=== PATIENT | female | born 1955 | race Caucasian/White ===

== ENCOUNTER 2024-08-01 22:48 | Inpatient (IN) | payer MEDICARE, OTHER, SELFPAY ==
[2024-08-01 19:49] VITALS: BP 165/111; BMI 27.7
[2024-08-01 19:51] VITALS: BP 165/111
[2024-08-01] MEDS: DILAUDID 0.5 MG IV (20:08)
[2024-08-01] MEDS: NSS 500 IV (20:23)
[2024-08-01] MEDS: DECADRON 4 MG IV (20:24)
[2024-08-01 20:27] LABS: % Basophils 0.4 % (0-2); % Eosinophils 0.1 % (0-6); % Immature Granulocytes 1.2 % (0-0.5); % Lymphocytes 5.3 % (20.5-51.1); % Monocytes 4.3 % (1.7-9.3); % Neutrophils 88.7 % (42.2-75.2); Absolute Basophils 0.1 10^3/uL (0-0.2); Absolute Immature Granulocytes 0.3 10^3/uL (0-0.05); Absolute Lymphocytes 1.2 10^3/uL (1.2-3.4); Absolute Neutrophils 19.7 10^3/uL (1.4-6.5); Hematocrit 30.6 % (37.0-47.0); Mean Corp Hgb Conc. 35.9 g/dL (33.0-37.0); Mean Corpuscular Hgb 31.3 pg (27.0-31.0); Mean Corpuscular Volume 87.2 fL (81.0-99.0); Mean Platelet Volume 8.3 fL (7.4-10.4); Nucleated Red Blood Cells % 0 %; Platelet Count 410 10^3/uL (130-400); Red Blood Cell Count 3.51 10^6/uL (4.20-5.40); Red Cell Dist. Width 13.3 % (11.5-14.5); White Blood Cell Count 22.2 10^3/uL (4.8-10.8)
[2024-08-01 20:42] LABS: Erythrocyte Sed Rate 42 mm/hour (0-20)
[2024-08-01 20:46] LABS: ALT (SGPT) 23 U/L (0-35); AST (SGOT) 31 U/L (14-36); Albumin 4.2 g/dl (3.5-5.0); Alkaline Phosphatase 85 U/L (38-126); Blood Urea Nitrogen 13 mg/dl (7-17); Calcium 8.7 mg/dl (8.4-10.2); Carbon Dioxide 13 mmol/L (22-30); Chloride 89 mmol/L (98-107); Creatine Phosphokinase 165 U/L (30-135); Estimated Creatinine Clearance 76 ml/min; Glucose 144 mg/dl (70-99); Potassium 4.3 mmol/L (3.5-5.1); Sodium 118 mmol/L (135-145); Total Bilirubin 0.8 mg/dl (0.2-1.3); Total Protein 6.8 g/dl (6.3-8.2); eGFR > 60.00
--- NOTE | 2024-08-01 20:55 | ED.GENMED ---
History of Present Illness
General
Chief Complaint: Extremity Pain (non-traumatic)
Source: patient and family
Time Seen by Provider: 08/01/24 19:50
History of Present Illness
History of Present Illness:
69-year-old female complaining of severe bilateral hand pain. Has been a progressive issue over 3 to 4 days but much worse today. Has also been an issue for the last few years. Underlying diagnosis for this has not been clear although felt to be
an arthralgia from her cancer medications. She changed medications 4 days ago. She has been drinking significant water the last 24 to 48 hours.
Past History
Past History
ED Past Medical History: Cancer, HTN, Hypercholesterolemia and Other (Thyroid disease)
ED Past Surgical History: Gynecological (Right mastectomy)
Social History
Tobacco: Non-smoker
Personal:
Living: with family
Review of Systems
Review of Systems
All Other Systems: Not applicable
Constitutional: Denies fever
Respiratory: Reports no symptoms
Cardiac: Reports no symptoms
Phy Exam
Physical Exam
Physical Exam:
GENERAL: Alert and oriented. Mildly pale. Moaning in pain and very uncomfortable. However fully awake alert and answering questions
EYE: Orbits normal.
NECK: Supple
ENT: Pharynx without erythema
CARDIAC: Mildly tachycardic and regular no murmur
LUNGS: Clear breath sounds,normal
ABDOMEN: Soft, without focal tenderness or distention
NEUROLOGICAL: Alert and oriented , grossly non-focal
SKIN: Warm and dry, no rash or lesion, no discoloration, skin intact.
MUSCULOSKELETAL: No edema,no deformity.Good color
PSYCH: Normal and appropriate interaction.
Course
Orders/Labs/Results
Orders:
Orders
08/01/24 20:07
HYDROmorphone [Dilaudid] 0.5 mg .ROUTE .[facility]
HYDROmorphone [Dilaudid] 0.5 mg IV NOW STA
08/01/24 20:10
Electrocardiogram (*1) Stat
Reason for Study: Other
Other Reason for Exam: chest pain
Cardiac Monitoring- Treatment ONCE
EKG- Treatment ONCE
IV Insert/Care/Rem.- Treatment PRN
0.9% Sodium Chloride 500 ml [Nss] 500 ml IV BOLUS
Pulse Ox/cont/shift [RESP] Stat
Quantity: 1
08/01/24 20:11
US Periph Venous UPPER Ext Davidson Urgent
Comment:
Reason For Exam: swelling pain. breat ca hx
08/01/24 20:13
Dexamethasone Sod Phosphate [Decadron] 4 mg IV NOW STA
08/01/24 20:14
CPK [Creatine Phosphokinase] Urgent
CRP [C-Reactive Protein] Urgent
Complete Blood Count/With Diff Urgent
Comprehensive Metabolic Panel Urgent
ESR [Erythrocyte Sed Rate] Urgent
NT-proBNP Urgent
Comment: ADD ON
Serum Osmolality Urgent
Comment: ADD ON
TSH Reflex To Free T4 Urgent
08/01/24 21:51
CXR Port [CR Chest Portable - 1 View] Urgent
Comment: Bilateral hand swelling
Reason For Exam: Bilateral hand swelling
Reason Study Needs to be Portable: Patient Unstable
08/01/24 22:00
3% Sodium Chloride 250 ml [Sodium Chloride 3%] 250 ml IV ONCE
08/01/24 22:06
Add On- LAB Urgent
Tests Added?: serum osmo, BNP
Urine Osmolality Random [Osmolality, Random Urine] Urgent
Urine Sodium Urgent
08/01/24 22:25
Admit/Transfer Patient As Directed
Co-Sign Provider:
Level of Care: Inpatient admission
Assign to:: Telemetry
Physician / Group: Lavern
Diagnosis: Hyponatremia
Reason for Telemetry: Arrhythmia
Date to Stop Telemetry: 08/04/24
Time to Stop Telemetry: 11:00
Reason for Hospitalization: 3% Sodium
Expected length of stay greater than two midnights?: Yes
ELOS- Estimated Length of Stay in days: 3
I certify the patient meets the requirements for IP care: Yes
PRN Pain Medication Management As Directed
May give lesser potent ordered pain med per pt: Yes
preference::
Protocol:: Medication orders for pain may be administered in a
manner that supports deferring to patient preference
when the pt is:
- Requesting an ordered lesser potent pain medication.
Least to most potent pain medications are defined
as: acetaminophen < NSAID < tramadol < opioids
(morphine, oxycodone, hydromorphone).
- Requesting a lesser dose of the same medication IF
ORDERED.
- Requesting a less intrusive route of administration
if both routes are prescribed by the provider (PO <
IV).
08/01/24 22:26
Code Status As Directed
Resuscitation Status: Full Code
08/01/24 22:31
Add On- LAB Routine
Tests Added?: TSH w/Reflex
08/02/24 02:00
BMP [Basic Metabolic Panel] Routine
08/02/24 06:00
BMP [Basic Metabolic Panel] IN AM
08/04/24 11:00
DC Protocol for Telemetry ONCE
Abnormal Lab Results
08/01/24
20:14
WBC 22.2 H 10^3/uL
(4.8-10.8)
RBC 3.51 L 10^6/uL
(4.20-5.40)
Hgb 11.0 L g/dL
(12.0-16.0)
Hct 30.6 L %
(37.0-47.0)
MCH 31.3 H pg
(27.0-31.0)
Plt Count 410 H 10^3/uL
(130-400)
Abs Immat Gran (auto) 0.3 H 10^3/uL
(0-0.05)
Absolute Neuts (auto) 19.7 H 10^3/uL
(1.4-6.5)
Absolute Monos (auto) 1.0 H 10^3/uL
(0.1-0.6)
Immature Gran % 1.2 H %
(0-0.5)
Neutrophils % 88.7 H %
(42.2-75.2)
Lymphocytes % 5.3 L %
(20.5-51.1)
ESR 42 H mm/hour
(0-20)
Sodium 118 L* mmol/L
(135-145)
Chloride 89 L mmol/L
(98-107)
Carbon Dioxide 13 L* mmol/L
(22-30)
Glucose 144 H mg/dl
(70-99)
Creatine Kinase 165 H U/L
(30-135)
C-Reactive Protein 32.00 H mg/L
(0.0-10.00)
08/01/24 20:14
08/01/24 20:14
Vital Signs
Initial and Last Documented VS:
Initial Vital Signs
Temp Pulse Resp BP Pulse Ox
98.5 F 111 30 165/111 100
08/01/24 19:49 08/01/24 19:49 08/01/24 19:49 08/01/24 19:49 08/01/24 19:49
Last Documented Vital Signs
Temp Pulse Resp BP Pulse Ox
98.5 F 106 14 178/84 91
08/01/24 19:49 08/01/24 21:30 08/01/24 21:30 08/01/24 21:00 08/01/24 21:30
MDM/Problems Addressed
Differential Diagnosis Includes:
Bilateral hand and wrist swelling. Appears isolated to the hand and wrist. Doubt vascular issue. Good distal pulses and color. Ultrasounds unremarkable. Low suspicion for DVT. Also doubt infectious issue. Clinically neither hand looks
infected. However she does have a significant leukocytosis. May be reactive may be secondary to already starting steroids. Inflammatory markers mildly elevated. This has been an ongoing issue however worse. Secondarily and more importantly at
this time she has a sodium of 118. Previous sodiums run about 130. Discussed with nephrology. She has had significant fluid intake recently. We will restrict fluids slowly start hypertonic saline. Discussed with Dr. Elizabeth at [facility]. They will
accept her as an admission but she will stay here until a bed is available.
*Radiology
Radiology exam reviewed: preliminary read by ED provider (Negative chest x-ray) and radiology read reviewed (Negative ultrasound)
*Pulse Oximetry
Patient hypoxic: no
*EKG
Interpreted by ED Provider?: Yes
Interpretation: abnormal
Comparison EKG: no comparison EKG present
Heart Rate: 104
Rate: tachycardiac
Rhythm: sinus
[place]: normal axis
Interval: normal interval
QRS Pattern: normal QRS
Ischemia: no ischemia
*[employer] Interpretation
Rate: tachycardiac
Interpretation: abnormal
Heart Rate: 102
Rhythm: sinus
*Critical Care Note
Total Time (30-74mins, 75-104mins- exclusive of procedures): 45
Update Note
Update Note:
2054... Patient sodium is 118. Previous sodiums have been 125-131. Last 1 was 131. Discussed with nephrology. Slow careful hypertonic saline at 20 cc/h. Fluid restrict. With patient's complicated history it makes most sense to have her at
[facility]. Patient and family agree. Will contact them. We are awaiting a callback from the nephrology group.
ED Attending Note
-
Portions of this chart may have been created with voice recognition software.� Occasional wrong word or��sound alike� substitutions may have occurred due to the inherent limitations of voice recognition software.
Discharge Plan
Departure
Patient Disposition: Admit
Date of Disposition: 08/01/24
Time of Disposition: 21:51
Presentation/result/management discussed w/ accepting MD/DO: Nephrology
Discharge Problem:
Severe hyponatremia, Severe bilateral hand arthralgias, History of breast CA
Prescriptions:
No Action
losartan 50 mg Tablet
50 mg PO DAILY
Theragen Tablet
1 tab PO DAILY
tramadol 50 mg Tablet
50 mg PO Q6HPRN PRN (Reason: moderate pain)
acetaminophen [Tylenol Extra Strength] 500 mg Tablet
1,000 mg PO Q6HPRN PRN (Reason: mild pain)
levothyroxine 50 mcg Tablet
50 mcg PO DAILY
ibuprofen 200 mg Tablet
600 mg PO Q6HPRN PRN (Reason: mild pain)
vitamin B complex Tablet
1 tab PO DAILY
methylprednisolone 4 mg Tablets,Dose Pack
0 mg PO PER PKG DIR
ezetimibe 10 mg Tablet
10 mg PO DAILY
calcium carbonate-vitamin D3 [Calcium 500 + D] 500 mg-10 mcg (400 unit) Tablet
1 tab PO DAILY
inulin-sorbitol 2 gram Tablet,Chewable
1 tab PO DAILY
magnesium oxide 400 mg magnesium Tablet
400 mg PO HS
Referrals:
Horacio Steele NP [Family Provider] -
Interventions
Interventions:
*Risk Screen - Suicide Last Done: 08/01/24 19:49
*General Assessment Last Done: 08/01/24 19:49
*Neglect/Abuse Screening Last Done: 08/01/24 19:49
*ED- Fall Risk Assessment Last Done: 08/01/24 19:49
*ED COVID-19 Vaccine History Last Done: 08/01/24 19:49
ED-Skin Assessment Last Done: 08/01/24 19:49
ED-Peripheral Vascular Assessment Last Done: 08/01/24 19:49
ED-Musculoskeletal Assessment Last Done: 08/01/24 19:49
Discharge Date and Time
Print Language: MOHAWK
[2024-08-01 21:00] VITALS: BP 178/84
[2024-08-01] MEDS: SODIUM CHLORIDE 3% 250 IV (21:43)
[2024-08-01 22:00] VITALS: BP 169/88
--- NOTE | 2024-08-01 22:30 | HPS.HSE ---
Family Physician
-
Family Physician: Horacio Steele NP
Chief Complaint
-
Bilateral Hand and Feet Swelling / Pain
History of Present Illness
Patient is a 69 y/o female past medical history of breast cancer, hypertension, hyperlipidemia, and hypothyroidism who presents with worsening bilateral hand pain. Patient has been experiencing bilateral hand pain and swelling for at least year.
Family reports she has undergone extensive work-up at [facility] without a definitive diagnosis. It was felt the symptoms may be related to one of her oncologic medications so decision was made to change her regimen, Following the change in medications
symptoms have actually worsened instead of improved. Due to severity of the symptoms her family brought her to the emergency department for evaluation. Work-up revealed a sodium of 118 and patient reports she has been drinking a large amount of
water, close to 100 ounces per day.
Medical History
Past Medical History
Past Medical History: Reports Other
Additional Past Medical History:
Essential Hypertension
Hyperlipidemia
Hypothyroidism
Chronic Hyponatremia
Breast Cancer
B-Cell Lymphoma
Past Surgical History: Reports Other
Additional Past Surgical History:
Allergies
Allergy/AdvReac Type Severity Reaction Status Date / Time
No Known Allergies Allergy Unverified 08/01/24 19:49
Home Medications
acetaminophen 500 mg tablet (Tylenol Extra Strength) 1,000 mg PO Q6HPRN PRN mild pain 08/01/24
calcium 500 mg (as carbonate)-vitamin D3 10 mcg (400 unit) tablet (Calcium 500 + D) 1 tab PO DAILY 08/01/24
ezetimibe 10 mg tablet 10 mg PO DAILY 08/01/24
ibuprofen 200 mg tablet 600 mg PO Q6HPRN PRN mild pain 08/01/24
inulin-sorbitol 2 gram chewable tablet 1 tab PO DAILY 08/01/24
levothyroxine 50 mcg tablet 50 mcg PO DAILY 08/01/24
losartan 50 mg tablet 50 mg PO DAILY 08/01/24
magnesium oxide 400 mg PO HS 08/01/24
methylprednisolone 4 mg tablets in a dose pack 0 mg PO PER PKG DIR 08/01/24
therapeutic multivitamin 1 tab PO DAILY 08/01/24
tramadol 50 mg tablet 50 mg PO Q6HPRN PRN moderate pain 08/01/24
vitamin B complex 1 tab PO DAILY 08/01/24
Social History
Tobacco: Non-smoker
Family History
Family History: Not pertinent
Allergies / Home Medications
Allergies reflects when Allergies were last updated in [employer].
Home Medications with original date entered in [employer]
Allergy/Medication List:
Allergies
Allergy/AdvReac Type Severity Reaction Status Date / Time
No Known Allergies Allergy Unverified 08/01/24 19:49
Home Medications
acetaminophen 500 mg tablet (Tylenol Extra Strength) 1,000 mg PO Q6HPRN PRN mild pain 08/01/24
calcium 500 mg (as carbonate)-vitamin D3 10 mcg (400 unit) tablet (Calcium 500 + D) 1 tab PO DAILY 08/01/24
ezetimibe 10 mg tablet 10 mg PO DAILY 08/01/24
ibuprofen 200 mg tablet 600 mg PO Q6HPRN PRN mild pain 08/01/24
inulin-sorbitol 2 gram chewable tablet 1 tab PO DAILY 08/01/24
levothyroxine 50 mcg tablet 50 mcg PO DAILY 08/01/24
losartan 50 mg tablet 50 mg PO DAILY 08/01/24
magnesium oxide 400 mg PO HS 08/01/24
methylprednisolone 4 mg tablets in a dose pack 0 mg PO PER PKG DIR 08/01/24
therapeutic multivitamin 1 tab PO DAILY 08/01/24
tramadol 50 mg tablet 50 mg PO Q6HPRN PRN moderate pain 08/01/24
vitamin B complex 1 tab PO DAILY 08/01/24
Review of Systems
-
A 12 point ROS was completed and negative except as noted: Yes
Respiratory: Denies Cough or Trouble Breathing
Cardiac: Denies Chest Pain or Palpitations
Abdomen/GI: Denies Abdominal Pain, Vomiting or Diarrhea
Physical Exam
Vital Signs
Vital Signs
Temp Pulse Resp BP Pulse Ox
98.5 F 106 14 178/84 91
08/01/24 19:49 08/01/24 21:30 08/01/24 21:30 08/01/24 21:00 08/01/24 21:30
Physical Exam
General: Well Developed, Well Nourished and Other (Appears slightly pale)
HEENT: Anicteric and Moist mucous membranes
Respiratory: Clear and Non Labored Respirations
Cardiac: S1/S2, Regular Rhythm and Tachycardia (Slightly)
GI: Soft and Non Tender
Musculoskeletal: No Clubbing and No Cyanosis
Skin: Warm, Dry and Other (Notable swelling involing bilateral finger and wrist joints, left greater than right; Mild erythema right 2nd MCP joint and left wrist)
Neuro: Awake, Alert and Oriented
Psych: Calm
Laboratory Results
-
08/01/24 20:14
08/01/24 20:14
Laboratory Results
Total Bilirubin 0.8 mg/dl (0.2-1.3) 08/01/24 20:14
AST 31 U/L (14-36) 08/01/24 20:14
ALT 23 U/L (0-35) 08/01/24 20:14
Alkaline Phosphatase 85 U/L (38-126) 08/01/24 20:14
Data Reviewed
-
Ultrasound: Report Reviewed by me
Lab Data: Labs Reviewed by me
Impression/Plan
-
Acute on Chronic Hyponatremia, likely related to excess fluid intake
-Baseline sodium ~130
-Consult Nephrology
-Check urine electrolytes
-Continue 3% NaCl
-Continue fluid restriction
-Avoid NSAID
-Recheck sodium later tonight and in AM
Bilateral Hand Pain / Swelling consistent with Polyarthralgia
-Patient has been accepted in transfer to the oncology service of Dr. Elizabeth, but no bed available
-Continue Decadron 4mg IV Daily
-Continue Tylenol for mild pain, Tramadol for moderate pain, and Dilaudid for severe pain
Metabolic Acidosis
-Check VBG to evaluate pH
-Consider sodium bicarbonate based on pH result
Leukocytosis, no evidence of infection possible leukemoid reaction from steroids
-Trend WBC count
-Monitor for fevers
Essential Hypertension
-Continue losartan
Hyperlipidemia
-Continue ezetimibe
Hypothyroidism
-Check TSH
-Continue levothyroxine
DVT proph: Lovenox
Code Status: Full Code
[2024-08-01 22:41] LABS: Osmolality Serum 249 mOsm/kg (275-300)
[2024-08-01 22:51] LABS: NT-proBNP 201 pg/ml
--- NOTE | 2024-08-01 22:58 | W.PN.UPDATE ---
Update Note
Progress Note Update
Patient seen in conjunction with TERESSA. I agree with the findings and physical. I concur with the assessment and plan unless stated otherwise.
Briefly, this is a 69-year-old female with past medical history of large B cell cancer status post chemo several years ago, more recent history of breast cancer status post right breast lumpectomy and previously on treatment with letrozole and
immune chemotherapeutic agent with subsequent development of arthralgias and arthroplasty in the bilateral upper and lower extremities mostly in the hands and feet. She was switched from letrozole to exemestane on July 20 with acute worsening of
arthropathy and eczematous send has been discontinued since July 24. Despite discontinuation the patient has continued to have swelling redness and pain in her hands and feet. With any amount of physical activity she gets severe pain and she was
unable to tolerate any follow-up. She was started on Medrol Dosepak by her oncologist. She came into the emergency department today due to worsening pain and swelling. Patient denies any prior history of connective tissue diseases. She has not
had any fevers or chills. She has ongoing workup and has seen rheumatology but was uncomfortable with plan of action and is pending further evaluation at [facility].
Patient reports history of hyponatremia in the past during treatment for a B-cell lymphoma. No specific workup was done at that time. She reports fairly high water intake. She reports that due to the pain she paces a lot and anytime she walks
across Q changes she drinks a glass of water and drinking up to about 100 ounces of water daily. She denies polyuria. She does not feel thirsty. She denies any headache.
Here in the emergency department blood pressure was elevated at 178/82, pulse was 106 and she was satting 98% on room air. She was afebrile. White count was 22 hemoglobin 11 platelet 410. Sodium notable for being 118, bicarb 13 BUN and creatinine
were normal at 13 and 0.6 with a normal glucose. CRP and ESR were elevated. Peripheral ultrasound was negative for DVT. Chest x-ray was clear. ECG with sinus tach and nonischemic.
Patient here with complaint for polyarthritis clearly of systemic inflammatory origin and no signs of acute infectious process. Suspect secondary to either medications or paraneoplastic. Cannot rule out underlying connective tissue disease. She
is also here with hyponatremia to a sodium of 118. Spouse reports slight alteration in mental status but patient is alert and oriented and no history of seizures and no focal neurological deficits.
1. 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
- admit to telemetry
- urine Na and osms
- started hypertonic saline, attempt to correct to 122 in 12 and 24 hours
- repeat Na in 6 hours
- strict free water restriction 1.2 L
- i/os
- nephrology consultation
2. subacute polyarthritis - pending w/u at [facility], unclear etiology drug induced (lupus)? arthritis suspected
- acute treatment with decadron 4 daily for now
- pain control
- supportive measures
- avoiding nsaids for now due to severe hyponatremia
- accepted and pending transfer to [facility], bed availabe in 1 to 2 days
3. Low serum bicarb - respiratory alk vs non-anion gap metabolic acidosis
- check vbg
- if metabolic acidosis will consider bicarb replacement with oral sodium citrate/sodium bicarb
DVT PPX - lovenox sq
Code status - Full Code
[2024-08-01 22:59] LABS: Venous Blood Gas B.E. -2.9 mmol/L (-4 to +4); Venous Blood Gas HCO3 19.9 mmol/L (22-27); Venous Blood Gas pCO2 28 mmHg (35-48); Venous Blood Gas pH 7.46 (7.32-7.43); Venous Blood Gas pO2 164 mmHg (30-50)
[2024-08-01 23:00] VITALS: BP 166/91
[2024-08-01 23:39] LABS: TSH Reflex To Free T4 3.99 uIU/ml (0.47-4.68)
[2024-08-02] VITALS (8 sets, daily range): BP systolic 140–168; BP diastolic 75–99; BMI 27.6
--- NOTE | 2024-08-02 00:30 | PTCARENOTE ---
Pt arrived to [facility] via stretcher from ED. Pt pulled over into bed 328 from stretcher with staff assistance. Pt assessed, feeling weak and having swelling/pain in b/l hands. Pt AAOx3, able to make needs known. Pt oriented to room, call owens within
reach. Care ongoing.
[2024-08-02] MEDS: DILAUDID 0.25 MG IV ×2 (01:01→21:00)
[2024-08-02 01:28] LABS: Urine Albumin Negative (Neg - Trace); Urine Bilirubin Negative (Negative); Urine Character Clear (Clear); Urine Color Yellow; Urine Glucose Negative (Negative); Urine Ketone 2+ (Negative); Urine Leukocyte 2+ (Negative); Urine Nitrite Negative (Negative); Urine Occult Blood 3+ (Negative); Urine Specific Gravity 1.005 (<1.030); Urine Urobilinogen Negative (Neg - 1+)
[2024-08-02 01:38] LABS: Osmolality Urine 292 mOsm/kg (300-900)
[2024-08-02 02:20] LABS: Urine Urothelial Cell 16-20 /LPF (FEW)
[2024-08-02 02:21] LABS: Urine Bacteria Moderate (Negative)
[2024-08-02 02:22] LABS: Urine Red Blood Cell 21-25 /HPF (0-2)
[2024-08-02 02:34] LABS: Blood Urea Nitrogen 8 mg/dl (7-17); Calcium 8.5 mg/dl (8.4-10.2); Carbon Dioxide 17 mmol/L (22-30); Chloride 94 mmol/L (98-107); Estimated Creatinine Clearance 76 ml/min; Glucose 156 mg/dl (70-99); Potassium 4.3 mmol/L (3.5-5.1); Sodium 123 mmol/L (135-145); eGFR > 60.00
--- NOTE | 2024-08-02 03:52 | W.PN.UPDATE ---
Update Note
Progress Note Update
Discussed Labs with Dr. Landers- Stopped 3% saline solution to avoid correcting too quickly. Discussed plan with RN.
--- NOTE | 2024-08-02 04:00 | PTCARENOTE ---
This RN received message from TERESSA Luna to d/c Na Cl 3% pt currently receiving. Pt repeat Na 123. Stopped infusion and will continue with fluid restriction.
[2024-08-02 04:20] LABS: Urine Sodium 70 mmol/L (30-90)
[2024-08-02] MEDS: SYNTHROID 50 MCG PO (05:02)
[2024-08-02 06:43] LABS: Hematocrit 31.4 % (37.0-47.0); Hemoglobin 11.2 g/dL (12.0-16.0); Mean Corp Hgb Conc. 35.7 g/dL (33.0-37.0); Mean Corpuscular Hgb 31.5 pg (27.0-31.0); Mean Corpuscular Volume 88.2 fL (81.0-99.0); Mean Platelet Volume 8.3 fL (7.4-10.4); Platelet Count 446 10^3/uL (130-400); Red Blood Cell Count 3.56 10^6/uL (4.20-5.40); Red Cell Dist. Width 13.2 % (11.5-14.5); White Blood Cell Count 31.2 10^3/uL (4.8-10.8)
[2024-08-02 06:49] LABS: Blood Urea Nitrogen 8 mg/dl (7-17); Calcium 9.1 mg/dl (8.4-10.2); Carbon Dioxide 20 mmol/L (22-30); Chloride 99 mmol/L (98-107); Estimated Creatinine Clearance 76 ml/min; Glucose 122 mg/dl (70-99); Potassium 4.5 mmol/L (3.5-5.1); Sodium 129 mmol/L (135-145); eGFR > 60.00
[2024-08-02] MEDS: ZETIA 10 MG PO (09:10)
[2024-08-02] MEDS: DECADRON 4 MG IV (09:10)
[2024-08-02] MEDS: COZAAR 50 MG PO (09:10)
[2024-08-02 09:35] LABS: Urine Albumin Negative (Neg - Trace); Urine Bilirubin Negative (Negative); Urine Character Clear (Clear); Urine Color Yellow; Urine Glucose Negative (Negative); Urine Ketone Negative (Negative); Urine Leukocyte Negative (Negative); Urine Nitrite Negative (Negative); Urine Occult Blood 2+ (Negative); Urine Urobilinogen Negative (Neg - 1+)
[2024-08-02 09:47] LABS: Urine Bacteria Few (Negative); Urine Squamous Cell 0-2 /LPF (Few); Urine White Cell 0-2 /HPF (0-5)
--- NOTE | 2024-08-02 10:16 | CON.ONC ---
Impression
Impression
Chronic hyponatremia
Upper extremity edema
History of stage III ER positive breast carcinoma status post TC x 4/letrozole Verzenio/exemestane
Remote DCLB NHL
Plan
Plan
Evaluate substrates
Review peripheral smear
Monitor trend to ascertain whether reactive or primary bone marrow malignant etiology
Flow cytometry
BCR-ABL
Will follow
Patient History
History of Present Illness
Patient is a pleasant 69-year-old female with a history of diffuse large B-cell lymphoma diagnosed 2012 status post R-CHOP to remission but has a concomitant diagnosis of stage III breast carcinoma with 16-20 nodes involved with her initial
presentation in 2020. She received 4 cycles of TC followed by letrozole/Verzenio for 2 years. Recently she has been changed to exemestane with recurrence of upper extremity swelling. She is discontinued AI therapy as of early July. During this
hospitalization patient has had a dramatic elevation of neutrophils with considerable left shift including promyelocytes and significant hyponatremia. She otherwise offers no additional complaints.
Past-Medical/Surgical History
Past Medical History
Essential Hypertension
Hyperlipidemia
Hypothyroidism
Chronic Hyponatremia
Breast Cancer
B-Cell Lymphoma
Past Surgical History
Mastectomy
Social History
Tobacco: Non-smoker
Family History
Family History: Not pertinent
Patient Medication
�Medication �Instructions �Recorded �Confirmed �Last Taken �Type
acetaminophen 500 mg tablet 1,000 mg PO Q6HPRN PRN mild pain 08/01/24 08/01/24 08/01/24 History
(Tylenol Extra Strength)
calcium 500 mg (as 1 tab PO DAILY 08/01/24 08/01/24 08/01/24 History
carbonate)-vitamin D3 10 mcg (400
unit) tablet (Calcium 500 + D)
ezetimibe 10 mg tablet 10 mg PO DAILY 08/01/24 08/01/24 08/01/24 History
ibuprofen 200 mg tablet 600 mg PO Q6HPRN PRN mild pain 08/01/24 08/01/24 08/01/24 History
inulin-sorbitol 2 gram chewable 1 tab PO DAILY 08/01/24 08/01/24 08/01/24 History
tablet
levothyroxine 50 mcg tablet 50 mcg PO DAILY 08/01/24 08/01/24 08/01/24 History
losartan 50 mg tablet 50 mg PO DAILY 08/01/24 08/01/24 08/01/24 History
magnesium oxide 400 mg PO HS 08/01/24 08/01/24 07/31/24 History
methylprednisolone 4 mg tablets in 0 mg PO PER PKG DIR 08/01/24 08/01/24 08/01/24 History
a dose pack
therapeutic multivitamin 1 tab PO DAILY 08/01/24 08/01/24 08/01/24 History
tramadol 50 mg tablet 50 mg PO Q6HPRN PRN moderate pain 08/01/24 08/01/24 08/01/24 History
vitamin B complex 1 tab PO DAILY 08/01/24 08/01/24 08/01/24 History
Active Medications
Generic Name Dose Route Start Last Admin
Trade Name Freq PRN Reason Stop Dose Admin
Acetaminophen 1,000 mg 08/02/24 00:25
Acetaminophen 500 Mg Tablet PO 08/30/24 00:24
Q6HPRN PRN
mild pain / fever
Dexamethasone Sodium Phosphate 4 mg 08/02/24 08:00 08/02/24 09:10
Dexamethasone 4 Mg/Ml 1 Ml Vial IV 08/30/24 07:59 4 mg
DAILY ADRIÁN Administration
Ezetimibe 10 mg 08/02/24 08:00 08/02/24 09:10
Ezetimibe (Zetia) 10 Mg Tablet PO 08/30/24 07:59 10 mg
DAILY ADRIÁN Administration
Enoxaparin Sodium 40 mg 08/02/24 18:00
Enoxaparin Sodium 40 Mg/0.4 Ml Syringe SC 08/30/24 17:59
QPM ADRIÁN
Hydromorphone HCl 0.25 mg 08/02/24 00:25 08/02/24 01:01
Hydromorphone 0.25 Mg/0.5 Ml Syringe IV 08/16/24 00:24 0.25 mg
Q3HPRN PRN Administration
severe pain
Levothyroxine Sodium 50 mcg 08/02/24 06:00 08/02/24 05:02
Levothyroxine 50 Mcg Tablet PO 08/30/24 05:59 50 mcg
DAILY @ 0600 ADRIÁN Administration
Losartan Potassium 50 mg 08/02/24 08:00 08/02/24 09:10
Losartan 50 Mg Tablet PO 08/30/24 07:59 50 mg
DAILY ADRIÁN Administration
Sodium Chloride 0 flush 08/02/24 01:00
Sodium Chloride 0.9% (Flush) Syringe IV 08/30/24 00:59
PER PROTOCOL ADRIÁN
Tramadol HCl 50 mg 08/02/24 00:25
Tramadol Hcl 50 Mg Tablet PO 08/30/24 00:24
Q6HPRN PRN
moderate pain
Review of Systems
-
10 point review of systems fails elicit additional complaints other than those reviewed in the HPI
Physical Exam
-
Physical Exam
General: Well Developed, Well Nourished and Other (Appears slightly pale)
HEENT: Anicteric and Moist mucous membranes
Respiratory: Clear and Non Labored Respirations
Cardiac: S1/S2, Regular Rhythm and Tachycardia (Slightly)
GI: Soft and Non Tender
Musculoskeletal: No Clubbing and No Cyanosis
Skin: Warm, Dry and Other (Notable swelling involing bilateral finger and wrist joints, left greater than right; Mild erythema right 2nd MCP joint and left wrist)
Neuro: Awake, Alert and Oriented
Psych: Calm
Labs
Lab Results
WBC 31.2 10^3/uL (4.8-10.8) H 08/02/24 05:52
RBC 3.56 10^6/uL (4.20-5.40) L 08/02/24 05:52
Hgb 11.2 g/dL (12.0-16.0) L 08/02/24 05:52
Hct 31.4 % (37.0-47.0) L 08/02/24 05:52
MCV 88.2 fL (81.0-99.0) 08/02/24 05:52
MCH 31.5 pg (27.0-31.0) H 08/02/24 05:52
MCHC 35.7 g/dL (33.0-37.0) 08/02/24 05:52
RDW 13.2 % (11.5-14.5) 08/02/24 05:52
Plt Count 446 10^3/uL (130-400) H 08/02/24 05:52
MPV 8.3 fL (7.4-10.4) 08/02/24 05:52
Abs Immat Gran (auto) 0.3 10^3/uL (0-0.05) H 08/01/24 20:14
Absolute Neuts (auto) 19.7 10^3/uL (1.4-6.5) H 08/01/24 20:14
Absolute Lymphs (auto) 1.2 10^3/uL (1.2-3.4) 08/01/24 20:14
Absolute Monos (auto) 1.0 10^3/uL (0.1-0.6) H 08/01/24 20:14
Absolute Eos (auto) 0.0 10^3/uL (0-0.7) 08/01/24 20:14
Absolute Basos (auto) 0.1 10^3/uL (0-0.2) 08/01/24 20:14
Immature Gran % 1.2 % (0-0.5) H 08/01/24 20:14
Neutrophils % 88.7 % (42.2-75.2) H 08/01/24 20:14
Lymphocytes % 5.3 % (20.5-51.1) L 08/01/24 20:14
Monocytes % 4.3 % (1.7-9.3) 08/01/24 20:14
Eosinophils % 0.1 % (0-6) 08/01/24 20:14
Basophils % 0.4 % (0-2) 08/01/24 20:14
Creatinine 0.5 mg/dL (0.6-1.0) L 08/02/24 05:52
Vital Signs
Vital Signs
Temp Pulse Resp BP Pulse Ox
98.6 F 94 19 145/85 96
08/02/24 07:05 08/02/24 09:10 08/02/24 07:05 08/02/24 09:10 08/02/24 07:05
--- NOTE | 2024-08-02 10:53 | W.CON.NEPH ---
Consultation
-
Date/Time Consultation Requested: 08/01/2024 at 8 PM
Date/Time Consultation Performed: 08/02/2024 at 10 AM
Requesting Provider: Dr. De La Vega
Performing Provider: Dr. Salas
Reason for Consultation: Hyponatremia
Medical History
-
Chief Complaint: Hyponatremia
History of Present Illness:
69-year-old female with a history of diffuse large B-cell lymphoma diagnosed 2011 status post R-CHOP to remission but has a concomitant diagnosis of stage III breast carcinoma 2020. She received 4 cycles of TC followed by letrozole/Verzenio for 2
years per oncology record. Recently she has been changed to exemestane with recurrence of upper extremity swelling and chronic hyponatremia.
Presents on the with a sodium of 118.
She was given 3% saline overnight and corrected to 129.
She is otherwise asymptomatic no chest pain shortness of breath nausea or vomiting.
Additionally she drinks at least 80 ounces of water per day with hand pain
Past Medical History
Diffuse large B-cell lymphoma diagnosed 2011 status post R-CHOP to remission but has a concomitant diagnosis of stage III breast carcinoma with 16-20 nodes involved with her initial presentation in 2020. Hypertension, hyperlipidemia, hypothyroidism
Social History
Tobacco: Non-Smoker
Alcohol: None
Family History
Family History: Not Pertinent
Allergies / Home Medications
Allergy/AdvReac Type Severity Reaction Status Date / Time
No Known Allergies Allergy Unverified 08/01/24 19:49
�Medication �Instructions �Recorded �Confirmed �Type
acetaminophen 500 mg tablet 1,000 mg PO Q6HPRN PRN mild pain 08/01/24 08/01/24 History
(Tylenol Extra Strength)
calcium 500 mg (as 1 tab PO DAILY 08/01/24 08/01/24 History
carbonate)-vitamin D3 10 mcg (400
unit) tablet (Calcium 500 + D)
ezetimibe 10 mg tablet 10 mg PO DAILY 08/01/24 08/01/24 History
ibuprofen 200 mg tablet 600 mg PO Q6HPRN PRN mild pain 08/01/24 08/01/24 History
inulin-sorbitol 2 gram chewable 1 tab PO DAILY 08/01/24 08/01/24 History
tablet
levothyroxine 50 mcg tablet 50 mcg PO DAILY 08/01/24 08/01/24 History
losartan 50 mg tablet 50 mg PO DAILY 08/01/24 08/01/24 History
magnesium oxide 400 mg PO HS 08/01/24 08/01/24 History
methylprednisolone 4 mg tablets in 0 mg PO PER PKG DIR 08/01/24 08/01/24 History
a dose pack
therapeutic multivitamin 1 tab PO DAILY 08/01/24 08/01/24 History
tramadol 50 mg tablet 50 mg PO Q6HPRN PRN moderate pain 08/01/24 08/01/24 History
vitamin B complex 1 tab PO DAILY 08/01/24 08/01/24 History
Review of Systems
-
Hand pain no shortness of breath chest pain nausea vomit
All other systems: Negative unless noted
Physical Exam
Vital Signs
Vital Signs
Temp Pulse Resp BP Pulse Ox
98.6 F 94 19 145/85 96
08/02/24 07:05 08/02/24 09:10 08/02/24 07:05 08/02/24 09:10 08/02/24 10:32
Lab Results
WBC 31.2 10^3/uL (4.8-10.8) H 08/02/24 05:52
RBC 3.56 10^6/uL (4.20-5.40) L 08/02/24 05:52
Hgb 11.2 g/dL (12.0-16.0) L 08/02/24 05:52
Hct 31.4 % (37.0-47.0) L 08/02/24 05:52
Plt Count 446 10^3/uL (130-400) H 08/02/24 05:52
Sodium 129 mmol/L (135-145) L 08/02/24 05:52
Potassium 4.5 mmol/L (3.5-5.1) 08/02/24 05:52
Chloride 99 mmol/L (98-107) 08/02/24 05:52
Carbon Dioxide 20 mmol/L (22-30) L 08/02/24 05:52
BUN 8 mg/dl (7-17) 08/02/24 05:52
Creatinine 0.5 mg/dL (0.6-1.0) L 08/02/24 05:52
eGFR > 60.00 08/02/24 05:52
Glucose 122 mg/dl (70-99) H 08/02/24 05:52
Calcium 9.1 mg/dl (8.4-10.2) 08/02/24 05:52
Tla-V-Odusokgtmsv Pept 201 pg/ml 08/01/24 20:14
Albumin 4.2 g/dl (3.5-5.0) 08/01/24 20:14
Physical Exam
General no acute distress
HEENT no cephalic atraumatic extraocular muscle intact no scleral icterus no JVD neck supple
lungs clear to auscultation bilateral
heart regular S1-S2 positive
abdomen soft nontender positive bowel sounds
extremities bilateral hand swelling
Neurologically nonfocal alert and oriented x 3
Skin no lesions no abrasions no petechiae
Psych normal affect no bizarre behavior
Data Reviewed
-
Radiology: Image Personally Visualized and interpreted (No acute pathology)
Labs: Labs Reviewed by me, Discussed with Physician and Discussed with Patient
Assessment/Plan
-
69-year-old female with a history of diffuse large B-cell lymphoma diagnosed 2012 status post R-CHOP to remission but has a concomitant diagnosis of stage III breast carcinoma 2020. She received 4 cycles of TC followed by letrozole/Verzenio for 2
years per oncology record. Recently she has been changed to exemestane with recurrence of upper extremity swelling and chronic hyponatremia.
Presents on the with a sodium of 118.
She was given 3% saline overnight and corrected to 129.
Additionally she drinks at least 80 ounces of water per day with hand pain
Impression.
Hyponatremia
B-cell lymphoma in remission
Breast cancer 2020 diagnosed
Hypertension.
Plan.
Hyponatremia of 118 on admission up to 120 0912 hrs. with 3% saline.
Secondary to medication, hand pain in conjunction with excessive water intake of 80 ounces
Slight overcorrection will give 750 cc D5W over 1 hour recheck labs this afternoon
Continue fluid restriction
Discussed with primary medical nurse
[2024-08-02] MEDS: D5/0.9% SODIUM CHLORIDE 1000 IV (11:07)
[2024-08-02] MEDS: ULTRAM 50 MG PO (11:19)
--- NOTE | 2024-08-02 11:54 | CM ---
Patient seen at bedside. Patient stated that she lives with her in a 2 story home. Patient stated that she has an option for first floor set up but it is very 'bright' with all the lights from the microwave... Patient has her helping
her up the stairs to go to bedroom. Patient has no DME, past need for VN or SNF. Patient PCP is Lisa Ramsey. Patient uses the [facility] in [place] for her short term pharmacy needs, however this option is not noted in pharmacy list. CM will
request MIS to add.
Patient indicated discussion is ongoing about transfer to [facility] but she is uncertain if she wants to go at this time. CM updated nursing. Patient plan is for discharge home with VN if needed. Patient would benefit from PT/OT assessment when medically
appropriate. CM will continue to follow for discharge planning needs.
Plan; home with VN vs transfer to [facility] pending functional assessments
[2024-08-02] MEDS: TYLENOL 1000 MG PO (12:37)
--- NOTE | 2024-08-02 13:55 | W.PN.HOSP.TC ---
Today's Communication/Plan
-
Follow sodium
Add B6
Assessment / Plan
Assessment / Plan
69-year-old female presented with bilateral hand and feet swelling and pain. She has had this for 1 year and had undergone extensive workup at [facility] without any definitive diagnosis. She was off of letrozole for 2 weeks in April but did not
significantly get better and it was restarted. Recently letrozole was changed to Aromasin , Symptoms got worse after that.
Chest X ray- No Acute Changes
USS- No sonographic evidence for upper extremity deep venous thrombosis.
CVS: S1-S2 normal
Chest: CTA B/L
Abdomen: Soft, NT / Bowel sounds present
Extremities: Mild edema noted left wrist left hand dorsum, mild edema right wrist right dorsum of the hand
No pedal edema or no feet edema noted by me
Normal sensorimotor exam though patient cannot make a fist because of stiffness
# Acute on chronic hyponatremia
Sodium was 118 on admission
Likely secondary to excess fluid intake approximately 100 ounces daily
Baseline sodium is 130
3% saline started and discontinued to avoid rapid correction, D5W started
Fluid restriction 48 ounce
Avoid NSAIDs
Follow sodium
Nephrology evaluation appreciated
#Bilateral hand pain and swelling
Patient has been accepted to the oncology service at [facility] Dr. Elizabeth no bed available
OP Onc is Dr.Igor Cedeño at [facility]
? Hand-foot Syndrome from Chemo?
Started after treatment with letrozole reportedly and letrozole was switched to exemestane on July 20 no has worsening arthropathy and discontinued.
She also saw a progressive care manager at [facility]
Was started on Medrol Dosepak as outpatient by oncologist
Decadron ordered on admission, symptoms better.
Pain control
Oncology eval appreciated
May need to follow-up with neurology and get nerve conduction study as outpatient to rule out neuropathy related to chemo
Add Pyridoxine
# Metabolic acidosis-both anion gap and nongap metabolic acidosis , and also respiratory alkalosis noted VBG. Acidosis correcting.
# Abnormal urine analysis-repeat
# Hyperglycemia-likely secondary to steroids. Check hemoglobin A1c
# Leukocytosis-with left shift
Unclear etiology
No clear infectious etiology noted
Blood cultures ordered
Patient has low stools 3 times a day therefore we will send stool studies also
Heme consulted
Flow Cytometry and BCR-ABL ordered.
# Hyperlipidemia-continue Zetia
# Hypothyroidism continue Synthroid
# Hypertension-on losartan
# History of Stage 3 breast cancer with right breast lumpectomy 2020 and Chemotherapy with Taxotere and Cytoxan.( 4 cycles)
Then started on Rx with letrozole and Verzenio.
Letrozole was switched to Aromasin on July 20 no has worsening arthropathy and discontinued
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
# DVT prophylaxis-Lovenox
# Full code
D/W and daughter at bed side
Awaiting transfer to [facility]
time spent over 50 min
Anticipated Discharge: 24 - 48 hours
Subjective/Interval History
-
Date of Service: August 02, 2024
Objective Data
-
Labs:
Laboratory Results
08/02/24 08/02/24 08/02/24
02:13 05:52 14:00
WBC 31.2 H
Hgb 11.2 L
Hct 31.4 L
Plt Count 446 H
Sodium 123 L 129 L Pending
Potassium 4.3 4.5 Pending
Chloride 94 L 99 Pending
Carbon Dioxide 17 L 20 L Pending
BUN 8 8 Pending
Creatinine 0.5 L 0.5 L Pending
Glucose 156 H 122 H Pending
Calcium 8.5 9.1 Pending
Vital Signs:
Vital Signs
Temp Pulse Resp BP Pulse Ox
98.2 F 88 17 147/87 97
08/02/24 11:05 08/02/24 11:05 08/02/24 11:05 08/02/24 11:05 08/02/24 11:05
I&O
08/01/24 08/02/24 08/03/24
06:59 06:59 06:59
Intake Total 720 / 720
Output Total 300 / 300
Balance 420 / 420
[2024-08-02 14:02] LABS: Glycohemoglobin (HgbA1c) 5.2 % (4.0-5.6)
[2024-08-02] MEDS: VITAMIN B-6 50 MG PO (15:33)
[2024-08-02 17:58] LABS: Vitamin B12 953 pg/ml (239-931)
[2024-08-02] MEDS: LOVENOX 40 MG SC (18:05)
[2024-08-02 20:29] LABS: Blood Urea Nitrogen 14 mg/dl (7-17); Calcium 8.7 mg/dl (8.4-10.2); Carbon Dioxide 19 mmol/L (22-30); Chloride 104 mmol/L (98-107); Estimated Creatinine Clearance 65 ml/min; Glucose 108 mg/dl (70-99); Potassium 4.1 mmol/L (3.5-5.1); Sodium 133 mmol/L (135-145); eGFR > 60.00
--- NOTE | 2024-08-02 21:30 | PTCARENOTE ---
This RN received message from [facility]ph[facility] Joseph to admin D5W 1L over 2 hrs. Pt Na 133. Will continue to monitor pt.
[2024-08-02] MEDS: D5W 1000 IV (21:42)
--- NOTE | 2024-08-02 22:07 | W.PN.UPDATE ---
Update Note
Progress Note Update
ordered D5W 1 Liter over 2 hrs for na 133
[2024-08-03 03:00] VITALS: BP 135/76
[2024-08-03] MEDS: SYNTHROID 50 MCG PO (06:13)
[2024-08-03 06:30] LABS: Iron 36 ug/dl (37-170); LDH 194 U/L (120-246)
[2024-08-03 07:38] LABS: Folate 18.8 ng/ml (2.76-20); Vitamin B12 915 pg/ml (239-931)
[2024-08-03 07:53] VITALS: BP 152/90
[2024-08-03] MEDS: COZAAR 50 MG PO (07:55)
[2024-08-03] MEDS: DECADRON 4 MG IV (07:56)
[2024-08-03] MEDS: ZETIA 10 MG PO (07:56)
[2024-08-03] MEDS: VITAMIN B-6 50 MG PO (07:56)
--- NOTE | 2024-08-03 10:04 | PN.CDI ---
Addendum entered and electronically signed by Vinita Chavarria MD 08/03/24 18:20:
Documentation is complete at this time.
Original Note:
CDI
- -
CDI:
Physician Documentation Request
Admit Date: 08/01/24 22:48
Dear Doctor Aura,
Please review the following and provide your response in the progress notes.
Clinical Indicators:
PN, 08/02
# Metabolic acidosis-both anion gap and nongap metabolic acidosis ,
#...and also respiratory alkalosis noted VBG. Acidosis correcting.
# Leukocytosis-with left shift
#...Unclear etiology
#...No clear infectious etiology noted
Laboratory Tests
08/01/24 08/02/24
20:14 05:52
WBC 22.2 H 31.2 H
Selected Entries
08/01/24
19:49
Pulse 111
Resp Rate 30
Please clarify which most accurately describes the patient:
SIRS due to a non-infectious source
-Indicate the known or suspected etiology
-Indicate if there is associated organ dysfunction, such as renal or respiratory failure
Other(please specify)
*Systemic manifestations of infection, with 2 or more SIRS criteria which include:
Fever > 100.4 degrees F or hypothermia < 96.8 degrees F
Leukocytosis - WBC > 12,000 or leukopenia, WBC < 4,000 or > 10% bands
Tachycardia - > 90 beats per minute
Tachypnea - RR > 20 breaths per minute or PaCO2 < 32 mmHg
Source: Merck Manual 2012
Indicate the known or suspected underlying infection, such as UTI, pneumonia or cellulitis
Indicate if a suspected bacterial infection of unknown source
Indicate if there is associated organ dysfunction, such as renal or respiratory failure
Use of terms such as suspected, likely, concern for, or probable (associated with a specific diagnosis that is being evaluated, monitored, or treated as if it exists) are acceptable and can be coded in the inpatient setting, when documented at the
time of discharge.
Thank you,
Monica Escamilla RN BSN CCDS
CDI Specialist
Please contact via tiger text
Please use your independent medical judgment in providing your response.
[2024-08-03 11:00] VITALS: BP 168/93
--- NOTE | 2024-08-03 12:30 | CM ---
CM met with patient and her regarding transfer to [facility]; pt received a message from Dr. Elizabeth, [facility], regarding transfer for tomorrow, 08/03/2024. CM called [facility] and spoke with Hamzah who confirmed plan for transfer to
[facility] tomorrow. [facility] will call when a bed is available for transfer.
Dr. Chavarria notified of above.
Plan: Transfer to [facility] tomorrow; await call from [facility] with confirmation and bed assignment for transfer. CM to coordinate transport once bed assignment is confirmed.
[facility]: [phone]
--- NOTE | 2024-08-03 13:13 | W.PN.NEPH.PH ---
Today's Communication / Plan
-
follow labs , cotn FR
Assessment/Plan
-
69-year-old female with a history of diffuse large B-cell lymphoma diagnosed 2011 status post R-CHOP to remission but has a concomitant diagnosis of stage III breast carcinoma 2020. She received 4 cycles of TC followed by letrozole/Verzenio for 2
years per oncology record. Recently she has been changed to exemestane with recurrence of upper extremity swelling and chronic hyponatremia.
Presents on the with a sodium of 118.
She was given 3% saline overnight and corrected to 129.
Additionally she drinks at least 80 ounces of water per day with hand pain
Impression.
Hyponatremia
B-cell lymphoma in remission
Breast cancer 2020 diagnosed
Hypertension.
Plan.
sodium up at 133 last night, recheck now
U osmo 292, u na normal
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
reviewed with pt imp of FR moving forwards
may benefit from low dose diuretics but has h/o cramps -to be eval out pt
mild met acidosis monitor
pain control
Discussed with primary
d/w pt and at bedside in detail
-
-
Date of Service: August 03, 2024
CC / HPI / ROS
-
Chief Complaint:
hyponatremia
History of Present Illness:
sodium up at 133
bp are up
no fever
WBC remains high
Review of Systems:
no cp or sob
hand numbness still
Labs
-
Labs:
WBC 31.2 10^3/uL (4.8-10.8) H 08/02/24 05:52
RBC 3.56 10^6/uL (4.20-5.40) L 08/02/24 05:52
Hgb 11.2 g/dL (12.0-16.0) L 08/02/24 05:52
Hct 31.4 % (37.0-47.0) L 08/02/24 05:52
Plt Count 446 10^3/uL (130-400) H 08/02/24 05:52
Sodium 133 mmol/L (135-145) L 08/02/24 20:11
Potassium 4.1 mmol/L (3.5-5.1) 08/02/24 20:11
Chloride 104 mmol/L (98-107) 08/02/24 20:11
Carbon Dioxide 19 mmol/L (22-30) L 08/02/24 20:11
BUN 14 mg/dl (7-17) 08/02/24 20:11
Creatinine 0.7 mg/dL (0.6-1.0) 08/02/24 20:11
eGFR > 60.00 08/02/24 20:11
Glucose 108 mg/dl (70-99) H 08/02/24 20:11
Calcium 8.7 mg/dl (8.4-10.2) 08/02/24 20:11
Hcy-T-Qrajmrvpyxd Pept 201 pg/ml 08/01/24 20:14
Albumin 4.2 g/dl (3.5-5.0) 08/01/24 20:14
Physical Exam
-
Vital Signs:
Vital Signs
Temp Pulse Resp BP Pulse Ox
99.1 F 108 14 168/93 96
08/03/24 11:00 08/03/24 11:00 08/03/24 11:00 08/03/24 11:00 08/03/24 11:00
Cardiovascular:: Regular rate and rhythm
Respiratory:: Bilateral: CTA
Lung Excursion:: Normal
Abdomen:: Nontender and Soft
Extremity Edema:: None: Bilateral:
Seymour Catheter: No
--- NOTE | 2024-08-03 13:41 | W.PN.ONC2 ---
Today's Communication / Plan
-
Does not have active inpt Heme/Onc issues.
It seems her complaints are acute on chronic.
No objection to d/c home from Heme/Onc standpoint.
Impression
Impression
Chronic hyponatremia
Upper extremity edema
Joint pain
History of stage III ER positive breast carcinoma status post TC x 4/letrozole Verzenio/exemestane
Remote DCLB NHL
Plan
Plan
Hyponatremia resolving.
Accepted for transfer at [facility] but so far no bed available.
Main complaint today is hand swelling.
Leukocytosis likely steroid related.
I think she could potentially go home and follow up with Dr. Ortiz as outpt.
Subjective/Objective
Chief Complaint
Heme/Onc follow up of leukocytosis with L shift
Subjective
Still with severe hand pain. Pt took prednisone 08/02 and continues on steroids. Was drinking a lot of water prior to admission.
Vital Signs:
Vital Signs
Temp Pulse Resp BP Pulse Ox
99.1 F 108 14 168/93 96
08/03/24 11:00 08/03/24 11:00 08/03/24 11:00 08/03/24 11:00 08/03/24 11:00
Lab Results:
Laboratory Data
WBC 31.2 10^3/uL (4.8-10.8) H 08/02/24 05:52
Hgb 11.2 g/dL (12.0-16.0) L 08/02/24 05:52
Plt Count 446 10^3/uL (130-400) H 08/02/24 05:52
eGFR Cancelled 08/03/24 13:15
Physical Exam
HEENT: Moist Mucous Membranes; No Jaundice
Cardiology: Normal Sinus Rhythm, S1 and S2
Pulmonary: Clear; No Wheezes
GI: Soft; No Distended
Extremities: No C/C/E
Neuro: Non Focal
[2024-08-03 13:50] LABS: Blood Urea Nitrogen 12 mg/dl (7-17); Calcium 8.5 mg/dl (8.4-10.2); Carbon Dioxide 18 mmol/L (22-30); Chloride 104 mmol/L (98-107); Estimated Creatinine Clearance 76 ml/min; Glucose 86 mg/dl (70-99); Sodium 133 mmol/L (135-145); eGFR > 60.00
[2024-08-03 14:28] LABS: Hematocrit 32.2 % (37.0-47.0); Mean Corp Hgb Conc. 34.2 g/dL (33.0-37.0); Mean Corpuscular Volume 90.7 fL (81.0-99.0); Mean Platelet Volume 8.2 fL (7.4-10.4); Platelet Count 480 10^3/uL (130-400); Red Blood Cell Count 3.55 10^6/uL (4.20-5.40); Red Cell Dist. Width 14.4 % (11.5-14.5); White Blood Cell Count 23.6 10^3/uL (4.8-10.8)
--- NOTE | 2024-08-03 14:54 | W.PN.HOSP.TC ---
Today's Communication/Plan
-
Transfer to [facility]
FR
Assessment / Plan
Assessment / Plan
69-year-old female presented with bilateral hand and feet swelling and pain. She has had this for 1 year and had undergone extensive workup at [facility] without any definitive diagnosis. She was off of letrozole for 2 weeks in April but did not
significantly get better and it was restarted. Recently letrozole was changed to Aromasin , Symptoms got worse after that.
Chest X ray- No Acute Changes
USS- No sonographic evidence for upper extremity deep venous thrombosis.
CVS: S1-S2 normal
Chest: CTA B/L
Abdomen: Soft, NT / Bowel sounds present
Extremities: Mild edema noted left wrist left hand dorsum, mild edema right wrist right dorsum of the hand
No pedal edema or no feet edema noted by me
Normal sensorimotor exam though patient cannot make a fist because of stiffness
# Acute on chronic hyponatremia
Sodium was 118 on admission
Likely secondary to excess fluid intake approximately 100 ounces daily
Sodium is 133 today
3% saline started and discontinued to avoid rapid correction, D5W started, now just on FR
Avoid NSAIDs
Nephrology evaluation appreciated
#Bilateral hand pain and swelling
Patient has been accepted to the oncology service at [facility] Dr. Elizabeth no bed available
OP Onc is Dr.Igor Cedeño at [facility]
? Hand-foot Syndrome from Chemo?
Started after treatment with letrozole reportedly and letrozole was switched to exemestane on July 20 no has worsening arthropathy and discontinued.
She also saw a golf course equipment operator at [facility]
Was started on Medrol Dosepak as outpatient by oncologist
Decadron ordered on admission, symptoms slightly better.
Pain control
Oncology eval appreciated
May need to follow-up with neurology and get nerve conduction study as outpatient to rule out neuropathy related to chemo
Add Pyridoxine
# Metabolic acidosis-both anion gap and nongap metabolic acidosis , and also respiratory alkalosis noted VBG. Acidosis correcting.
# Abnormal urine analysis-repeat better
# Hyperglycemia-likely secondary to steroids. Hemoglobin A1c 5.2.
# Leukocytosis-with left shift
Unclear etiology
No clear infectious etiology noted
Blood cultures neg
Stool studies sent
Heme consulted
Flow Cytometry and BCR-ABL ordered.
# Hyperlipidemia-continue Zetia
# Hypothyroidism continue Synthroid
# Hypertension-on losartan
# History of Stage 3 breast cancer with right breast lumpectomy 2020 and Chemotherapy with Taxotere and Cytoxan.( 4 cycles)
Then started on Rx with letrozole and Verzenio.
Letrozole was switched to Aromasin on July 20 no has worsening arthropathy and discontinued
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
# DVT prophylaxis-Lovenox
# Full code
D/W at bed side
Discussed with nephrology
Awaiting transfer to [facility]
D/W Case management
Anticipated Discharge: Within 24 hours
Subjective/Interval History
-
Date of Service: August 03, 2024
Objective Data
-
Labs:
Laboratory Results
08/03/24 08/03/24 08/03/24
05:47 13:15 14:09
WBC 23.6 H
Hgb 11.0 L
Hct 32.2 L
Plt Count 480 H
Sodium 133 L Cancelled
Potassium 4.0 Cancelled
Chloride 104 Cancelled
Carbon Dioxide 18 L Cancelled
BUN 12 Cancelled
Creatinine 0.6 Cancelled
Glucose 86 Cancelled
Calcium 8.5 Cancelled
Vital Signs:
Vital Signs
Temp Pulse Resp BP Pulse Ox
99.1 F 108 14 168/93 96
08/03/24 11:00 08/03/24 11:00 08/03/24 11:00 08/03/24 11:00 08/03/24 11:00
I&O
08/02/24 08/03/24 08/04/24
06:59 06:59 06:59
Intake Total 720 / 720 720 / 720 240 / 240
Output Total 300 / 300
Balance 420 / 420 720 / 720 240 / 240
[2024-08-03 15:23] VITALS: BP 148/80
[2024-08-03] MEDS: LOVENOX SC (15:49)
[2024-08-03 19:36] VITALS: BP 146/82
[2024-08-03] MEDS: DILAUDID 0.25 MG IV (21:23)
[2024-08-03 23:38] VITALS: BP 122/73
[2024-08-04] MEDS: SYNTHROID 50 MCG PO (05:54)
[2024-08-04 07:36] VITALS: BP 156/92
[2024-08-04 07:44] LABS: % Basophils 0.7 % (0-2); % Eosinophils 0.7 % (0-6); % Immature Granulocytes 1.1 % (0-0.5); % Lymphocytes 22.3 % (20.5-51.1); % Monocytes 6.1 % (1.7-9.3); % Neutrophils 69.1 % (42.2-75.2); Absolute Basophils 0.1 10^3/uL (0-0.2); Absolute Eosinophils 0.1 10^3/uL (0-0.7); Absolute Immature Granulocytes 0.2 10^3/uL (0-0.05); Absolute Lymphocytes 3.4 10^3/uL (1.2-3.4); Absolute Monocytes 0.9 10^3/uL (0.1-0.6); Absolute Neutrophils 10.5 10^3/uL (1.4-6.5); Hematocrit 30.9 % (37.0-47.0); Hemoglobin 10.3 g/dL (12.0-16.0); Mean Corp Hgb Conc. 33.3 g/dL (33.0-37.0); Mean Corpuscular Hgb 30.7 pg (27.0-31.0); Mean Platelet Volume 8.2 fL (7.4-10.4); Nucleated Red Blood Cells % 0 %; Platelet Count 444 10^3/uL (130-400); Red Blood Cell Count 3.36 10^6/uL (4.20-5.40); Red Cell Dist. Width 14.2 % (11.5-14.5); White Blood Cell Count 15.2 10^3/uL (4.8-10.8)
[2024-08-04 08:22] LABS: Blood Urea Nitrogen 13 mg/dl (7-17); Calcium 8.8 mg/dl (8.4-10.2); Carbon Dioxide 21 mmol/L (22-30); Chloride 106 mmol/L (98-107); Estimated Creatinine Clearance 76 ml/min; Glucose 83 mg/dl (70-99); Potassium 4.1 mmol/L (3.5-5.1); Sodium 137 mmol/L (135-145); eGFR > 60.00
[2024-08-04] MEDS: ZETIA 10 MG PO (09:30)
[2024-08-04] MEDS: COZAAR 50 MG PO (09:30)
[2024-08-04] MEDS: VITAMIN B-6 50 MG PO (09:31)
[2024-08-04] MEDS: DECADRON 4 MG IV (09:31)
[2024-08-04] MEDS: TYLENOL 1000 MG PO (09:37)
[2024-08-04 11:05] VITALS: BP 147/86
--- NOTE | 2024-08-04 12:14 | W.PN.NEPH.PH ---
Today's Communication / Plan
-
for d/c
Assessment/Plan
-
69-year-old female with a history of diffuse large B-cell lymphoma diagnosed 2012 status post R-CHOP to remission but has a concomitant diagnosis of stage III breast carcinoma 2020. She received 4 cycles of TC followed by letrozole/Verzenio for 2
years per oncology record. Recently she has been changed to exemestane with recurrence of upper extremity swelling and chronic hyponatremia.
Presents on the with a sodium of 118.
She was given 3% saline overnight and corrected to 129.
Additionally she drinks at least 80 ounces of water per day with hand pain
Impression.
Hyponatremia
B-cell lymphoma in remission
Breast cancer 2020 diagnosed
Hypertension.
Plan.
sodium up at 137 today
Osmo 292, u na normal
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
reviewed with pt imp of FR moving forwards
mild met acidosis monitor
pain control
d/w pt and at bedside in detail
ok for d/c
BMP in 1-2weeks wiht PCP
-
-
Date of Service: August 04, 2024
CC / HPI / ROS
-
Chief Complaint:
hyponatremia
History of Present Illness:
sodium up at 137
bp sable
no fever
WBC remains high
Review of Systems:
no cp or sob
hand numbness improving
Labs
-
Labs:
WBC 15.2 10^3/uL (4.8-10.8) H 08/04/24 06:56
RBC 3.36 10^6/uL (4.20-5.40) L 08/04/24 06:56
Hgb 10.3 g/dL (12.0-16.0) L 08/04/24 06:56
Hct 30.9 % (37.0-47.0) L 08/04/24 06:56
Plt Count 444 10^3/uL (130-400) H 08/04/24 06:56
Sodium 137 mmol/L (135-145) 08/04/24 06:56
Potassium 4.1 mmol/L (3.5-5.1) 08/04/24 06:56
Chloride 106 mmol/L (98-107) 08/04/24 06:56
Carbon Dioxide 21 mmol/L (22-30) L 08/04/24 06:56
BUN 13 mg/dl (7-17) 08/04/24 06:56
Creatinine 0.6 mg/dL (0.6-1.0) 08/04/24 06:56
eGFR > 60.00 08/04/24 06:56
Glucose 83 mg/dl (70-99) 08/04/24 06:56
Calcium 8.8 mg/dl (8.4-10.2) 08/04/24 06:56
Wuc-W-Rtkirrgpcvk Pept 201 pg/ml 08/01/24 20:14
Albumin 4.2 g/dl (3.5-5.0) 08/01/24 20:14
Physical Exam
-
Vital Signs:
Vital Signs
Temp Pulse Resp BP Pulse Ox
98.2 F 88 17 147/86 97
08/04/24 11:05 08/04/24 11:05 08/04/24 11:05 08/04/24 11:05 08/04/24 11:05
Cardiovascular:: Regular rate and rhythm
Respiratory:: Bilateral: CTA
Lung Excursion:: Normal
Abdomen:: Nontender and Soft
Extremity Edema:: None: Bilateral:
Seymour Catheter: No
--- NOTE | 2024-08-04 12:38 | W.PN.HOSP.TC ---
Addendum entered and electronically signed by Monica Jarquin MD 08/06/24 15:19:
Acute on chronic hyponatremia--due to underlying SIADH and exacerbation likely from polydipsia
Original Note:
Today's Communication/Plan
-
d/c home
Assessment / Plan
Assessment / Plan
69-year-old female presented with bilateral hand and feet swelling and pain. She has had this for 1 year and had undergone extensive workup at [facility] without any definitive diagnosis. She was off of letrozole for 2 weeks in April but did not
significantly get better and it was restarted. Recently letrozole was changed to Aromasin , Symptoms got worse after that.
Chest X ray- No Acute Changes
USS- No sonographic evidence for upper extremity deep venous thrombosis.
CVS: S1-S2 normal
Chest: CTA B/L
Abdomen: Soft, NT / Bowel sounds present
Extremities: Mild edema noted left wrist left hand dorsum, mild edema right wrist right dorsum of the hand
No pedal edema or no feet edema noted by me
Normal sensorimotor exam though patient cannot make a fist because of stiffness
# Acute on chronic hyponatremia --resolved
Sodium was 118 on admission
Likely secondary to excess fluid intake approximately 100 ounces daily
3% saline started and discontinued to avoid rapid correction, D5W started, now just on FR
Avoid NSAIDs
Nephrology evaluation appreciated
#Bilateral hand pain and swelling
Patient has been accepted to the oncology service at [facility] Dr. Elizabeth no bed available--as per our ONC--can go home, pt and agreeable
OP Onc is Dr.Igor Cedeño at [facility]
? Hand-foot Syndrome from Chemo?
Started after treatment with letrozole reportedly and letrozole was switched to exemestane on July 20 no has worsening arthropathy and discontinued.
She also saw a manual arts therapy teacher at [facility]
Was started on Medrol Dosepak as outpatient by oncologist
Decadron ordered on admission, symptoms slightly better.
Pain control
Oncology eval appreciated
May need to follow-up with neurology and get nerve conduction study as outpatient to rule out neuropathy related to chemo
Add Pyridoxine
# Metabolic acidosis-both anion gap and nongap metabolic acidosis , and also respiratory alkalosis noted VBG. Acidosis correcting.
# Abnormal urine analysis-repeat better
# Hyperglycemia-likely secondary to steroids. Hemoglobin A1c 5.2.
# Leukocytosis-with left shift
Unclear etiology
No clear infectious etiology noted
Blood cultures neg
Stool studies sent
Heme consulted
Flow Cytometry and BCR-ABL ordered.
# Hyperlipidemia-continue Zetia
# Hypothyroidism continue Synthroid
# Hypertension-on losartan
# History of Stage 3 breast cancer with right breast lumpectomy 2020 and Chemotherapy with Taxotere and Cytoxan.( 4 cycles)
Then started on Rx with letrozole and Verzenio.
Letrozole was switched to Aromasin on July 20 no has worsening arthropathy and discontinued
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
# DVT prophylaxis-Lovenox
# Full code
D/W at bed side
Discussed with nephrology
Cancelling transfer to [facility]
OK for d/c
Anticipated Discharge: Today
Subjective/Interval History
-
Date of Service: August 04, 2024
pt without c/o
Objective Data
-
Labs:
Laboratory Results
08/04/24
06:56
WBC 15.2 H
Hgb 10.3 L
Hct 30.9 L
Plt Count 444 H
Sodium 137
Potassium 4.1
Chloride 106
Carbon Dioxide 21 L
BUN 13
Creatinine 0.6
Glucose 83
Calcium 8.8
Vital Signs:
max temp for 24 hours
08/03/24
11:00
Temp 99.1 F
Vital Signs
Temp Pulse Resp BP Pulse Ox
98.2 F 88 17 147/86 97
08/04/24 11:05 08/04/24 11:05 08/04/24 11:05 08/04/24 11:05 08/04/24 11:05
I&O
08/03/24 08/04/24 08/05/24
06:59 06:59 06:59
Intake Total 720 / 720 900 / 900
Balance 720 / 720 900 / 900
Review of Systems
-
All other systems: Reviewed and negative
Neuro: Reports Numbness (paresthesia left 5th finger)
Physical Exam
-
General: Well Developed, Well Nourished and No Apparent Distress
HEENT: Normocephalic and Atraumatic; Negative Oxygen
Respiratory: Clear to Auscultation; Negative Wheezes or Rhonchi
Cardiac: Regular Rhythm and S1/S2; Negative Murmur
GI: Soft, Nontender, Nondistended and Normal Bowel Sounds
Musculoskeletal: No Clubbing, No Cyanosis and No Edema
Neuro: Awake
Psych: Calm
--- NOTE | 2024-08-04 14:09 | CM ---
Pt decided to go home since [facility] did not call earlier today regarding bed availability for transfer. She will contact Dr. Elizabeth at [facility] for any needs.
Jocelynn was (I) amb and adl's, walking in the hallways.
Plan: Discharge to home with no needs.
[2024-08-04 18:16] LABS: Number Of Markers 26 markers; Source Blood
--- NOTE | 2024-08-05 07:02 | W.DCSUMMARY ---
Discharge Summary
Discharge Data
Date of Admission: 08/01/24
Date of Discharge: 08/04/24
-
Pending Results: No
Hospital Course
Primary care physician : 2 listed: Yuri Carpenter, Horacio Steele
Principal Discharge diagnosis : Acute on chronic hyponatremia, bilateral hand pain and swelling
Chronic Discharge diagnosis : Large B-cell lymphoma diagnosed in 2011 status post R-CHOP, history of stage III breast cancer with right breast lumpectomy diagnosed in 2020, essential hypertension, hypothyroidism, hyperlipidemia, hyperglycemia
secondary to steroids
Hospital Course : Patient is a 69-year-old female with a history of stage III breast cancer, essential hypertension, hyperlipidemia, hypothyroidism who presented with worsening bilateral hand pain. Patient has been experiencing this along with
swelling of her hands for the last year. She had undergone extensive workup at [facility] without a definitive diagnosis. It was felt that her symptoms may have been related to one of her oncologic medications so her regimen was changed. Following the
change, symptoms worsened. Due to severity of symptoms family brought her to the emergency department. Workup revealed a sodium of 18 as well as patient admitting to drinking large amount of water close to 100 ounces per day. Patient was admitted.
Problem #1: Acute on chronic hyponatremia. This was likely secondary to excessive water intake of 100 ounces daily. Patient was seen in consultation by nephrology. She was started on 3% saline which was discontinued to avoid rapid correction.
She was then placed on a fluid restriction. She was told to avoid nonsteroidal medications. Sodium at discharge was 137.
Problem #2: Bilateral hand pain and swelling. This has been ongoing for the better part of a year. She is followed at [facility] oncologist Dr. Huseyin Cedeño. This was thought to possibly be hand-foot syndrome from chemotherapy.
Patient has seen rheumatology at [facility]. She was started on a Medrol Dosepak as an outpatient by her oncologist. Symptoms were slightly better but it did cause her sugars to elevate. Eventual workup with neurology may be
warranted. Nerve conduction studies as an outpatient should be done to rule out neuropathy related to chemotherapy. Pyridoxine was added as well.
Of note, she was seen by our oncologist here as well. Plans initially were for her to be transferred to the [facility] for further workup. However, no beds were available. Our oncologist here felt that since her sodium was
corrected and most of her bilateral hand complaints are chronic that she could be discharged home. Patient and her are agreeable with this and transferred to [facility] has been canceled.
Patient is stable for discharge home at this time. If there are any questions regarding this dictation over the hospital stay, please do not hesitate to call. Our office number is [phone].
Time for discharge 35 minutes.
Problem #3: All other medical issues. These include Large B-cell lymphoma diagnosed in 2011 status post R-CHOP, history of stage III breast cancer with right breast lumpectomy diagnosed in 2020, essential hypertension, hypothyroidism,
hyperlipidemia, hyperglycemia secondary to steroids. His medical issues are stable during her hospitalization. Medications were continued as able.
Discharge Plan
-
Patient Disposition: Home (Routine Discharge)
Discharge Diagnosis/Procedures: acute on chronic hyponatremia, bilateral hand pain and swelling, hyperglycemia, hyperlipidemia, hypothyroid, essential hypertension, history of stage 3 breast cancer, large B cell lymphoma history
Condition: Good
Diet: As tolerated and Restrict fluids to 48 oz
Activity: As tolerated
Driving Restrictions: As prior to admission
Bathing Restrictions: None
Referrals:
Horacio Steele NP [Family Provider] - in less than 1 week
Prescriptions:
New
pyridoxine (vitamin B6) 50 mg Tablet
50 mg PO DAILY Qty: 30 0RF
Continued
losartan 50 mg Tablet
50 mg PO DAILY
therapeutic multivitamin Tablet
1 tab PO DAILY
tramadol 50 mg Tablet
50 mg PO Q6HPRN PRN (Reason: moderate pain)
acetaminophen [Tylenol Extra Strength] 500 mg Tablet
1,000 mg PO Q6HPRN PRN (Reason: mild pain)
levothyroxine 50 mcg Tablet
50 mcg PO DAILY
vitamin B complex Tablet
1 tab PO DAILY
methylprednisolone 4 mg Tablets,Dose Pack
0 mg PO PER PKG DIR
ezetimibe 10 mg Tablet
10 mg PO DAILY
calcium carbonate-vitamin D3 [Calcium 500 + D] 500 mg-10 mcg (400 unit) Tablet
1 tab PO DAILY
inulin-sorbitol 2 gram Tablet,Chewable
1 tab PO DAILY
magnesium oxide 400 mg magnesium Tablet
400 mg PO HS
Discontinued
ibuprofen 200 mg Tablet
600 mg PO Q6HPRN PRN (Reason: mild pain)
Discharge Orders:
Discharge Patient (As Directed); Ordered 08/04/24
Ordered By: Monica Jarquin
Discharge Date and Time
Discharge Date/Time: 08/04/24 13:52
Print Language: BURUNDIAN
--- NOTE | 2024-08-06 14:52 | PN.CDI ---
CDI
- -
CDI:
Physician Documentation Request
Admit Date: 08/01/24 22:48
Dear Doctor Britton,
Please review the following and provide your response in the progress notes.
The purpose of this query is to ensure the accuracy of the conditions reported for your patient.
Clinical Indicators:
Nephrology, PN, 08/04
#Hyponatremia
#sodium up at 137 today
#Osmo 292, u na normal
#suspect underlying SIADH and exacerbation likely from polydipsia
Discharge Summary, 08/04
Problem #1: Acute on chronic hyponatremia.
#...This was likely secondary to excessive water intake of 100 ounces daily.
#...Patient was seen in consultation by nephrology.
#...She was started on 3% saline which was discontinued to avoid rapid correction.
#...She was then placed on a fluid restriction.
#...She was told to avoid nonsteroidal medications.
Based on the above and your clinical assessment, please clarify the appropriate diagnosis, if significant, that supports the above abnormalities and additional evaluation, monitoring and/or treatment rendered:
SIADH
Acute on Chronic Hyponatremia, only
Other(please specify)
Use of terms such as suspected, likely, concern for, or probable (associated with a specific diagnosis that is being evaluated, monitored, or treated as if it exists) are acceptable and can be coded in the inpatient setting, when documented at the
time of discharge.
Thank you,
Monica Escamilla RN BSN CCDS
CDI Specialist
Please contact via tiger text
Please use your independent medical judgment in providing your response.
== END 2024-08-04 13:52 | disposition home or self-care (01) | DRG 644 ==
LOC: 3 WEST ACU 22:48
PROVIDERS: Hospitalist; Internal Medicine; Physician Assistant Medical; ADMITTING PHYSICIAN Internal Medicine; ATTENDING PHYSICIAN Internal Medicine; CONSULT PHYSICIAN Internal Medicine Hematology & Oncology; CONSULT PHYSICIAN Internal Medicine Nephrology; EMERGENCY PHYSICIAN Emergency Medicine; FAMILY PHYSICIAN Nurse Practitioner Gerontology
DX: E22.2 Syndrome of inappropriate secretion of antidiuretic hormone (principal); C83.3A Diffuse large B-cell lymphoma, in remission; E87.4 Mixed disorder of acid-base balance; M79.642 Pain in left hand; M79.641 Pain in right hand; L27.1 Localized skin eruption due to drugs and medicaments taken internally; T45.1X5A Adverse effect of antineoplastic and immunosuppressive drugs, initial encounter; I10 Essential (primary) hypertension; E78.00 Pure hypercholesterolemia, unspecified; E03.9 Hypothyroidism, unspecified; C50.919 Malignant neoplasm of unspecified site of unspecified female breast; D72.829 Elevated white blood cell count, unspecified; R73.9 Hyperglycemia, unspecified; T38.0X5A Adverse effect of glucocorticoids and synthetic analogues, initial encounter; R82.998 Other abnormal findings in urine
CPT/HCPCS: 71045; 80048; 80053; 81003; 81015; 81206; 81207; 81208; 82550; 82607; 82728; 82746; 82805; 83036; 83540; 83615; 83880; 83930; 83935; 84300; 84443; 85025; 85027; 85652; 86140; 87040; 87045; 87046; 87077; 87324; 87427; 87449; 89055; 93005; 93970; 96361; 96365; 96366; 96375; 99291

== ENCOUNTER 2025-02-19 02:08 | Inpatient (IN) | payer MEDICARE, OTHER, SELFPAY ==
[2025-02-18 22:49] VITALS: BMI 27.4
[2025-02-18 22:52] VITALS: BP 146/109
[2025-02-18 23:00] VITALS: BP 121/109
[2025-02-18 23:05] LABS: Hematocrit 38.3 % (37.0-47.0); Hemoglobin 13.0 g/dL (12.0-16.0); Mean Corp Hgb Conc. 33.9 g/dL (33.0-37.0); Mean Corpuscular Volume 92.7 fL (81.0-99.0); Nucleated Red Blood Cells % 0 %; Platelet Count 206 10^3/uL (130-400); Red Cell Dist. Width 12.3 % (11.5-14.5)
[2025-02-18] MEDS: TORADOL 15 MG IV (23:14)
[2025-02-18] MEDS: ZOFRAN 4 MG IV (23:14)
[2025-02-18 23:22] LABS: ALT (SGPT) 117 U/L (0-35); AST (SGOT) 209 U/L (14-36); Albumin 4.6 g/dl (3.5-5.0); Alkaline Phosphatase 77 U/L (38-126); Blood Urea Nitrogen 15 mg/dl (7-17); Calcium 9.8 mg/dl (8.4-10.2); Carbon Dioxide 25 mmol/L (22-30); Chloride 94 mmol/L (98-107); Estimated Creatinine Clearance 62 ml/min; Glucose 159 mg/dl (70-99); Potassium 3.3 mmol/L (3.5-5.1); Sodium 128 mmol/L (135-145); Total Protein 7.7 g/dl (6.3-8.2); eGFR > 60.00
--- NOTE | 2025-02-18 23:30 | ED.GENMED ---
History of Present Illness
<Fiorella Gonzalez PA-C - Last Filed: 02/19/25 01:23>
General
Chief Complaint: Abdominal Pain
Source: patient
Exam Limitations: none
Time Seen by Provider: 02/18/25 23:05
Nursing documentation reviewed up to this point in time: agreed with
History of Present Illness
History of Present Illness:
69-year-old female with past medical history of hyperlipidemia, hypertension, thyroid disorder, presents the ER today with concerns of sudden onset sharp upper abdominal pain. It started earlier in the evening and subsided without intervention.
Subsequently, the pain came back and was more severe located all across the upper abdomen worse on the right side. Patient reports that she multiple episodes of vomiting at home. She denies any episodes of similar pain. She does not experience
any change in bowel habits, dysuria, diarrhea, constipation. Patient was able to consume very little food today and notes that the pain. To wrap around to the back occasionally. She denies any recent surgeries. She denies any hematemesis or dark
tarry stools. She reports that she takes ibuprofen occasionally for arthritis pain in the neck does not take medications daily. She is not a frequent drinker. Of note, she had a right mastectomy for breast cancer 4 years ago and does take
tamoxifen but is in remission, she follows with oncology at a [facility]. She also has had B-cell lymphoma and 2012 which has been treated.
Past History
<Fiorella Gonzalez PA-C - Last Filed: 02/19/25 01:23>
Past History
ED Past Medical History: Cancer, HTN, Hypercholesterolemia and Other (Thyroid disease)
ED Past Surgical History: Gynecological (Right mastectomy)
Social History
Tobacco: Non-smoker
Personal:
Living: with family
Review of Systems
<Fiorella Gonzalez PA-C - Last Filed: 02/19/25 01:23>
Review of Systems
All Other Systems: ROS reviewed and negative except as documented in HPI and ROS
Phy Exam
<Fiorella Gonzalez PA-C - Last Filed: 02/19/25 01:23>
Physical Exam
Physical Exam:
General: Patient appears uncomfortable secondary to pain but is nontoxic-appearing
Skin: Warm and dry, no rashes or lesions
Head: Normocephalic, atraumatic
Eyes: Sclera non-icteric. EOMs intact.
Cardiac: Regular rate and rhythm, no murmurs
Peripheral Vascular: No lower extremity swelling or edema
Pulm: Normal respiratory effort, no wheezes, rales, rhonchi
Abdomen: Diffuse upper abdominal tenderness to palpation, positive Camara sign, no tenderness at McBurney point
Neuro: CN II-XII intact, no focal neurologic deficits.
Psychiatric: Appropriate mood and affect.
Course
<Fiorella Gonzalez PA-C - Last Filed: 02/19/25 01:23>
Orders/Labs/Results
Orders:
Orders
02/18/25 22:53
EKG [Electrocardiogram (*1)] Urgent
Reason for Study: Abdominal Pain
EKG- Treatment ONCE
02/18/25 22:57
Complete Blood Count/With Diff Urgent
Comprehensive Metabolic Panel Urgent
Lipase Urgent
Serum Osmolality Urgent
Comment: ADD ON
02/18/25 23:06
Ketorolac [Toradol] 15 mg IV NOW STA
Ondansetron Injectable [Zofran] 4 mg IV NOW STA
02/18/25 23:29
Add On- LAB Urgent
Tests Added?: serum osmolality
Osmolality, Random Urine Urgent
Date Specimen was Collected: 02/19/25
Time Specimen was Collected: 00:01
Urinalysis Reflex To Culture Urgent
Date Specimen was Collected: 02/19/25
Time Specimen was Collected: 00:01
02/18/25 23:39
Lactated Ringers [Lr] 500 ml IV BOLUS
02/19/25 00:00
US Abdomen Limited Urgent
Reason For Exam: right upper quadrant pain
02/19/25 00:11
Urine Microscopic Reflex Cult Urgent
Urine Culture Urgent
SENA Source: U
Specimen Description:
Date Specimen was Collected: 02/19/25
Time Specimen was Collected: 00:01
02/19/25 00:43
Piperacillin/Tazo 4.5 Gram [Zosyn] 4.5 gram in 100 ml IV NOW
02/19/25 00:53
Potassium Chloride [KCl] 40 meq 0.9% Sodium Chloride 250 ml [Nss] 250 ml IV NOW
02/19/25 01:19
HYDROmorphone [Dilaudid] 0.5 mg IV NOW STA
02/19/25 Breakfast
NPO
Allow oral meds: No
Allow clear liquids: No
NPO with Ice Chips: No
Abnormal Lab Results
02/18/25 02/19/25
22:57 00:11
WBC 15.1 H 10^3/uL
(4.8-10.8)
RBC 4.13 L 10^6/uL
(4.20-5.40)
MCH 31.5 H pg
(27.0-31.0)
Abs Immat Gran (auto) 0.1 H 10^3/uL
(0-0.05)
Absolute Neuts (auto) 11.5 H 10^3/uL
(1.4-6.5)
Absolute Monos (auto) 1.0 H 10^3/uL
(0.1-0.6)
Neutrophils % 76.3 H %
(42.2-75.2)
Lymphocytes % 15.8 L %
(20.5-51.1)
Sodium 128 L mmol/L
(135-145)
Potassium 3.3 L mmol/L
(3.5-5.1)
Chloride 94 L mmol/L
(98-107)
Glucose 159 H mg/dl
(70-99)
Total Bilirubin 1.7 H mg/dl
(0.2-1.3)
AST 209 H U/L
(14-36)
ALT 117 H U/L
(0-35)
Lipase > 4000 H* U/L
(23-300)
Urine Ketones 3+ A
(Negative)
Ur Occult Blood Reflex 2+ A
(Negative)
Urine RBC 3-6 A /HPF
(0-2)
Urine Bacteria (Reflex) Many A
(Negative)
02/18/25 22:57
02/18/25 22:57
Vital Signs
Initial and Last Documented VS:
Initial Vital Signs
Temp
97.5 F
02/18/25 22:49
Last Documented Vital Signs
Temp Pulse Resp BP Pulse Ox
97.5 F 94 18 150/89 98
02/18/25 22:49 02/19/25 01:00 02/19/25 00:00 02/19/25 01:00 02/19/25 01:00
Mandylt;Jesus Mcdonough DO - Last Filed: 02/19/25 00:08>
Orders/Labs/Results
Orders:
Orders
02/18/25 22:53
EKG [Electrocardiogram (*1)] Urgent
Reason for Study: Abdominal Pain
EKG- Treatment ONCE
02/18/25 22:57
Complete Blood Count/With Diff Urgent
Comprehensive Metabolic Panel Urgent
Lipase Urgent
Serum Osmolality Urgent
Comment: ADD ON
02/18/25 23:06
Ketorolac [Toradol] 15 mg IV NOW STA
Ondansetron Injectable [Zofran] 4 mg IV NOW STA
02/18/25 23:29
Add On- LAB Urgent
Tests Added?: serum osmolality
Osmolality, Random Urine Urgent
Date Specimen was Collected: 02/19/25
Time Specimen was Collected: 00:01
Urinalysis Reflex To Culture Urgent
Date Specimen was Collected: 02/19/25
Time Specimen was Collected: 00:01
02/18/25 23:39
Lactated Ringers [Lr] 500 ml IV BOLUS
02/19/25 00:00
US Abdomen Limited Urgent
Reason For Exam: right upper quadrant pain
02/19/25 00:11
Urine Microscopic Reflex Cult Urgent
Urine Culture Urgent
SENA Source: U
Specimen Description:
Date Specimen was Collected: 02/19/25
Time Specimen was Collected: 00:01
02/19/25 00:43
Piperacillin/Tazo 4.5 Gram [Zosyn] 4.5 gram in 100 ml IV NOW
02/19/25 00:53
Potassium Chloride [KCl] 40 meq 0.9% Sodium Chloride 250 ml [Nss] 250 ml IV NOW
02/19/25 01:19
HYDROmorphone [Dilaudid] 0.5 mg IV NOW STA
02/19/25 Breakfast
NPO
Allow oral meds: No
Allow clear liquids: No
NPO with Ice Chips: No
Abnormal Lab Results
02/18/25 02/19/25
22:57 00:11
WBC 15.1 H 10^3/uL
(4.8-10.8)
RBC 4.13 L 10^6/uL
(4.20-5.40)
MCH 31.5 H pg
(27.0-31.0)
Abs Immat Gran (auto) 0.1 H 10^3/uL
(0-0.05)
Absolute Neuts (auto) 11.5 H 10^3/uL
(1.4-6.5)
Absolute Monos (auto) 1.0 H 10^3/uL
(0.1-0.6)
Neutrophils % 76.3 H %
(42.2-75.2)
Lymphocytes % 15.8 L %
(20.5-51.1)
Sodium 128 L mmol/L
(135-145)
Potassium 3.3 L mmol/L
(3.5-5.1)
Chloride 94 L mmol/L
(98-107)
Glucose 159 H mg/dl
(70-99)
Total Bilirubin 1.7 H mg/dl
(0.2-1.3)
AST 209 H U/L
(14-36)
ALT 117 H U/L
(0-35)
Lipase > 4000 H* U/L
(23-300)
Urine Ketones 3+ A
(Negative)
Ur Occult Blood Reflex 2+ A
(Negative)
Urine RBC 3-6 A /HPF
(0-2)
Urine Bacteria (Reflex) Many A
(Negative)
02/18/25 22:57
02/18/25 22:57
Vital Signs
Initial and Last Documented VS:
Initial Vital Signs
Temp
97.5 F
02/18/25 22:49
Last Documented Vital Signs
Temp Pulse Resp BP Pulse Ox
97.5 F 94 18 150/89 98
02/18/25 22:49 02/19/25 01:00 02/19/25 00:00 02/19/25 01:00 02/19/25 01:00
<Fiorella Gonzalez PA-C - Last Filed: 02/19/25 01:23>
MDM/Problems Addressed
Differential Diagnosis Includes:
Differentials include cholelithiasis, cholecystitis, pancreatitis, peptic ulcer disease, gastritis, diverticulitis, appendicitis
MDM/Problems Addressed:
69-year-old female presents to the ER today with concerns of upper abdominal pain. She has not had any associated fevers. She has associated multiple episodes of nausea and vomiting. Physical exam she appears uncomfortable secondary to pain and
is slightly tachycardic. She is diffuse upper abdominal tenderness to palpation, right greater than left. Lab work reveals 15 with hyponatremia, hypokalemia, likely due to GI losses. Her total bilirubin is 1.7 and her LFTs are elevated and her
lipase. For [place]. Patient is given LR, Toradol, and Zofran. Patient will be sent to ultrasound for further evaluation.
Ultrasound reveals findings compatible with acute cholecystitis. Gallbladder wall thickening with adjacent Buck cholecystic fluid. Lipase greater than 4000. Case discussed with Dr. Collins on-call, general surgery, patient will be evaluated in
the morning by surgery. Patient referred for admission.
<Fiorella Gonzalez PA-C - Last Filed: 02/19/25 01:23>
*Pulse Oximetry
SaO2: 100
Patient hypoxic: no
*Critical Care Note
Total Time (30-74mins, 75-104mins- exclusive of procedures): Not Applicable
ED Attending Note
<Fiorella Gonzalez PA-C - Last Filed: 02/19/25 01:23>
-
Portions of this chart may have been created with voice recognition software.� Occasional wrong word or��sound alike� substitutions may have occurred due to the inherent limitations of voice recognition software.
<Jesus Mcdonough DO - Last Filed: 02/19/25 00:08>
ED Attending Note
Patient seen and examined by attending physician: Yes
I performed the substantive portion of visit, reviewed & personally made and approve the management plan that is documented in note by myself or BRITTANIE.: Yes
ED Attending Note:
I agree with Hope's note
Patient presents with nausea, vomiting, upper abdominal pain. No fever. Symptoms began today. Initial onset was after lunch. She was feeling somewhat better and ate dinner when symptoms worsened again. No previous abdominal operations though
she has had both lymphoma and breast cancer.
General: Awake, Alert, Oriented X3. No acute distress.
Vitals: unremarkable
Head: Atraumatic
Eyes: Pupils equal, EOMI
Neck: Trachea midline
Lungs: Clear and equal b/l
Heart: Regular rate, no murmurs
Abd: Soft, positive epigastric tenderness, No pulsatile mass
Neuro: Nonfocal
Skin: Warm, dry, no rash
Extremities: pulses equal b/l, no edema
Labs show elevated lipase, mildly elevated white blood cell count. Sodium is mildly low. LFTs are bumped. Suspect gallstone pancreatitis. Ultrasound pending. Will require hospitalization
Discharge Plan
Departure
Patient Disposition: Admit
Date of Disposition: 02/19/25
Time of Disposition: 00:48
Admit to: Med/Surg
Presentation/result/management discussed w/ accepting MD/DO: Hospitalist
Patient with high blood pressure during this ER visit?: Yes
Condition: Fair
Discharge Problem:
Acute gallstone pancreatitis
Prescriptions:
No Action
losartan 50 mg Tablet
50 mg PO DAILY
therapeutic multivitamin Tablet
1 tab PO DAILY
tramadol 50 mg Tablet
50 mg PO Q6HPRN PRN (Reason: moderate pain)
acetaminophen [Tylenol Extra Strength] 500 mg Tablet
1,000 mg PO Q6HPRN PRN (Reason: mild pain)
levothyroxine 50 mcg Tablet
50 mcg PO DAILY
vitamin B complex Tablet
1 tab PO DAILY
methylprednisolone 4 mg Tablets,Dose Pack
0 mg PO PER PKG DIR
ezetimibe 10 mg Tablet
10 mg PO DAILY
calcium carbonate-vitamin D3 [Calcium 500 + D] 500 mg-10 mcg (400 unit) Tablet
1 tab PO DAILY
inulin-sorbitol 2 gram Tablet,Chewable
1 tab PO DAILY
magnesium oxide 400 mg magnesium Tablet
400 mg PO HS
pyridoxine (vitamin B6) 50 mg Tablet
50 mg PO DAILY Qty: 30 0RF
Referrals:
Horacio Steele NP [Family Provider, General]
Interventions
Interventions:
*Risk Screen - Suicide Last Done: 02/18/25 22:49
*General Assessment Last Done: 02/18/25 22:49
*Neglect/Abuse Screening Last Done: 02/18/25 22:49
*ED- Fall Risk Assessment Last Done: 02/18/25 22:49
*ED COVID-19 Vaccine History Last Done: 02/18/25 22:49
*ED Influenza Vaccine History Last Done: 02/18/25 22:49
UX-Isrvql-Bkqalgfhea Assessment Last Done: 02/18/25 22:49
Discharge Date and Time
Print Language: SYRIAN
[2025-02-18 23:37] LABS: Lipase > 4000 U/L (23-300)
[2025-02-18] MEDS: LR 500 IV (23:46)
[2025-02-19] VITALS (8 sets, daily range): BP systolic 122–153; BP diastolic 75–89; BMI 26.7
[2025-02-19 00:21] LABS: Urine Character Slightly Cloudy (Clear)
[2025-02-19] MEDS: ZOSYN 100 IV (00:50)
[2025-02-19 00:57] LABS: Urine Squamous Cell >30 /LPF (Few)
[2025-02-19 00:59] LABS: Urine White Cell 0-2 /HPF (0-5)
[2025-02-19] MEDS: KCL 270 MEQ IV (01:15)
[2025-02-19] MEDS: DILAUDID 0.5 MG IV ×2 (01:28→18:06)
--- NOTE | 2025-02-19 02:00 | HPS.HSE ---
Family Physician
-
Family Physician: Horacio Steele NP
Chief Complaint
-
Abd pain
History of Present Illness
Patient is a 69y F with PMH significant for DLBCL, breast cancer, hypertension and hypothyroidism who presents to ED complaining of abdominal pain. Patient states that she was feeling well until this afternoon when she developed epigastric
abdominal discomfort. Pain was initially quite severe, but passed within an hour or so. She had no associated N/V, fevers / chills, etc at that time.
Around diner time, the pain recurred. This time accompanied by nausea with 2 episodes of non-bloody emesis. Emesis consisted primarily of undigested food from dinner and lunch.
Patient had persistent, severe pain and presented to the ED for further evaluation.
She denies any prior history of similar symptoms.
Medical History
Past Medical History
Past Medical History: Reports Other
Additional Past Medical History:
Essential Hypertension
Hyperlipidemia
Hypothyroidism
Chronic Hyponatremia
Breast Cancer
B-Cell Lymphoma s/p R-CHOP
Pseudogout
Past Surgical History: Reports Other
Additional Past Surgical History:
Lumpectomy
Social History
Tobacco: Non-smoker
Alcohol: None
Drug: None
Personal:
Living: With Family
Family History
Family History: Not pertinent
Allergies / Home Medications
Allergies reflects when Allergies were last updated in [employer].
Home Medications with original date entered in [employer]
Allergy/Medication List:
Allergies
Allergy/AdvReac Type Severity Reaction Status Date / Time
No Known Allergies Allergy Verified 02/18/25 22:49
Home Medications
calcium 500 mg (as carbonate)-vitamin D3 10 mcg (400 unit) tablet (Calcium 500 + D) 1 tab PO DAILY Supplement 08/01/24
ezetimibe 10 mg tablet 10 mg PO DAILY cholesterol 08/01/24
levothyroxine 50 mcg tablet 50 mcg PO DAILY Thyroid 08/01/24
losartan 50 mg tablet 50 mg PO DAILY Blood Pressure 08/01/24
magnesium oxide 400 mg PO HS Supplement 08/01/24
pyridoxine (vitamin B6) 50 mg tablet 50 mg PO DAILY #30 tabs 08/04/24
colchicine 0.6 mg capsule 0.6 mg PO DAILY 02/19/25
icosapent ethyl 1 gram capsule 1 g PO DAILY 02/19/25
tamoxifen 20 mg tablet 20 mg PO DAILY 02/19/25
Review of Systems
-
History Source: Patient
A 12 point ROS was completed and negative except as noted: Yes
Constitutional: Denies Fever or Chills
Respiratory: Denies Cough or Trouble Breathing
Cardiac: Denies Chest Pain or Palpitations
Abdomen/GI: Reports Abdominal Pain, Nausea and Vomiting; Denies Diarrhea, Constipated, Bloody Stools or Black Stools
: Denies Dysuria or Frequency
Musculoskeletal: Denies Joint Pain or Edema
Neurological: Denies Dizzy or Headache
Physical Exam
Vital Signs
Vital Signs
Temp Pulse Resp BP Pulse Ox
97.5 F 94 18 150/89 98
02/18/25 22:49 02/19/25 01:00 02/19/25 00:00 02/19/25 01:00 02/19/25 01:00
Physical Exam
General: Other (69y F in no acute distress.)
HEENT: Moist mucous membranes and PERRLA
Respiratory: Clear; No Wheezes, Rales or Rhonchi
Cardiac: S1/S2 and Regular Rhythm; No Murmur
GI: Soft and Other (Pos tenderness RUQ with voluntary guarding. Pos BS.)
Musculoskeletal: No Clubbing, No Cyanosis and No Edema
Neuro: AO x 3
Laboratory Results
-
02/18/25 22:57
02/18/25 22:57
Laboratory Results
Total Bilirubin 1.7 mg/dl (0.2-1.3) H 02/18/25 22:57
AST 209 U/L (14-36) H 02/18/25 22:57
ALT 117 U/L (0-35) H 02/18/25 22:57
Alkaline Phosphatase 77 U/L (38-126) 02/18/25 22:57
Lipase > 4000 U/L (23-300) H* 02/18/25 22:57
Impression/Plan
-
A/P: Patient is a 69y F with PMH significant for DLBCL, breast cancer and hypertension who presents to ED complaining of abdominal pain.
Acute Calculous Cholecystitis
- Admit for further evaluation and treatment.
- NPO, IVFs, pain control and supportive care.
- IV abx with Zosyn for now.
- Surgery consulted for further recommendations / possible cholecystectomy.
- Follow for any new / worsening symptoms.
Chronic Hyponatremia
- Na levels are at / near prior baseline.
- Follow for changes while NPO / on IVFs.
Benign Hypertension
- Stable. Hold PO medications acutely.
Hypothyroidism
- Continue current T4 replacement.
Pseudogout
- Hold PO medication / colchicine acutely.
- Follow for any changes in joint pain, swelling, etc.
Breast Cancer
- s/p lumpectomy / initial treatment.
- On letrozole x years and developed adverse effects - now swicthed to tamoxifen.
DLBCL
- In remission s/p remote R-CHOP.
DVT Prophylaxis: SCDs
Code Status: Full
[2025-02-19] MEDS: LR 1000 IV ×3 (03:31→21:40)
[2025-02-19] MEDS: ZOSYN 50 IV ×3 (05:59→18:03)
[2025-02-19] MEDS: SYNTHROID 50 MCG PO (05:59)
[2025-02-19 06:18] LABS: Hematocrit 36.3 % (37.0-47.0); Hemoglobin 12.2 g/dL (12.0-16.0); Mean Corp Hgb Conc. 33.6 g/dL (33.0-37.0); Mean Corpuscular Volume 94.5 fL (81.0-99.0); Platelet Count 194 10^3/uL (130-400); Red Cell Dist. Width 12.5 % (11.5-14.5)
[2025-02-19 06:56] LABS: ALT (SGPT) 101 U/L (0-35); AST (SGOT) 112 U/L (14-36); Albumin 3.8 g/dl (3.5-5.0); Alkaline Phosphatase 52 U/L (38-126); Blood Urea Nitrogen 12 mg/dl (7-17); Calcium 8.7 mg/dl (8.4-10.2); Carbon Dioxide 24 mmol/L (22-30); Chloride 101 mmol/L (98-107); Estimated Creatinine Clearance 62 ml/min; Glucose 123 mg/dl (70-99); Magnesium 1.7 mg/dl (1.6-2.3); Potassium 4.7 mmol/L (3.5-5.1); Sodium 132 mmol/L (135-145); Total Protein 6.5 g/dl (6.3-8.2); eGFR > 60.00
[2025-02-19] MEDS: PROTONIX IV 40 MG IV (07:26)
[2025-02-19] MEDS: NSS (PRESERVATIVE FREE) 10 ML IV (07:27)
[2025-02-19] MEDS: TYLENOL 650 MG PO (07:30)
--- NOTE | 2025-02-19 08:32 | W.PN.HOSP.TC ---
Today's Communication/Plan
-
Trial of clear Liquid diet
GI consult
Assessment / Plan
Assessment / Plan
Impression:
Patient is a 69y F with PMH significant for DLBCL, breast cancer, hypertension and hypothyroidism who presents to ED complaining of abdominal pain. Patient states that she was feeling well until this afternoon when she developed epigastric
abdominal discomfort. Pain was initially quite severe, but passed within an hour or so. She had no associated N/V, fevers / chills, etc at that time.
Around diner time, the pain recurred. This time accompanied by nausea with 2 episodes of non-bloody emesis. Emesis consisted primarily of undigested food from dinner and lunch.
Patient had persistent, severe pain and presented to the ED for further evaluation.
She denies any prior history of similar symptoms.
Assessment/plan:
Acute Calculous Cholecystitis
- Admit for further evaluation and treatment.
- IVFs, pain control and supportive care.
- IV abx with Zosyn for now.
- Surgery consulted for further recommendations,, and treat acute pancreatitis, patient will need cholecystectomy.
- Trial of clear liquid
Acute pancreatitis
Possible secondary to passing gallbladder stone.
But ultrasound shows normal CBD diameter.
And also normal alk phos.
Treatment with IV fluid/nausea and pain control.
Trial of clear liquid
Check triglyceride level
Hyponatremia
Sodium improved
Benign Hypertension
Resume losartan
Hypothyroidism
- Continue current T4 replacement.
Pseudogout
- Hold PO medication / colchicine acutely.
- Follow for any changes in joint pain, swelling, etc.
Breast Cancer
- s/p lumpectomy / initial treatment.
- On letrozole x years and developed adverse effects - now swicthed to tamoxifen.
DLBCL
- In remission s/p remote R-CHOP.
CODE STATUS: Full code
DVT prophylaxis: SCDs
Diet: CLD
Disposition: Trial of clear Liquid diet
GI consult
Total time spent on today's encounter was 55 minutes which included time spent in counseling the patient/family regarding diagnosis and treatment plan as listed above, goals of care, and symptom management. Case was discussed with nursing staff,
specialists, and care coordinators/case management. All labs and imaging personally reviewed by me. Remainder the time spent in detailed review of previous records, lab data, imaging, and other medical provider documentation.
Anticipated Discharge: > 48 hours
Subjective/Interval History
-
Date of Service: February 19, 2025
Patient seen and examined at bedside, denies any chest pain or shortness of breath, still with epigastric/right upper quad abdominal pain.
Objective Data
-
Labs:
Laboratory Results
02/18/25 02/19/25
22:57 06:00
WBC 15.1 H 12.6 H
Hgb 13.0 12.2
Hct 38.3 36.3 L
Plt Count 206 194
Sodium 128 L 132 L
Potassium 3.3 L 4.7 D
Chloride 94 L 101
Carbon Dioxide 25 24
BUN 15 12
Creatinine 0.7 0.7
Glucose 159 H 123 H
Calcium 9.8 8.7
Total Bilirubin 1.7 H 1.3
AST 209 H 112 H
ALT 117 H 101 H
Alkaline Phosphatase 77 52
Vital Signs:
Vital Signs
Temp Pulse Resp BP Pulse Ox
97.8 F 97 18 134/75 97
02/19/25 07:33 02/19/25 07:33 02/19/25 07:33 02/19/25 07:33 02/19/25 07:33
Physical Exam
-
General: Well Developed, Well Nourished, No Apparent Distress and Comfortable
HEENT: Normocephalic, Atraumatic, Moist Mucous Membranes, No Ptosis, PERRLA and Nose Appears Normal
Respiratory: Clear to Auscultation and Non Labored Respirations
Cardiac: Regular Rhythm and S1/S2
Breast: Deferred by me
GI: Soft, Nondistended, Normal Bowel Sounds and Tender (Epigastric)
Genito-urinary: No Costovertebral Tender
Musculoskeletal: No Clubbing, No Cyanosis and No Edema
Skin: Warm
Neuro: Awake, Alert, Oriented, AO x 3 and No Motor Deficits
Psych: Calm
Data Reviewed
-
Diagnostic Radiology: Image personally visualized and interpreted and Report Reviewed by me
CT Scan: Image personally visualized and interpreted and Report Reviewed by me
Ultrasound: Image personally visualized and interpreted and Report Reviewed by me
MRI: Image personally visualized and interpreted and Report Reviewed by me
Medical Tests (Nuc Med, Echo etc): Image personally visualized and interpreted and Report Reviewed by me
Labs: Labs Reviewed by me
Old Records: Reviewed
--- NOTE | 2025-02-19 09:10 | CON.GS ---
Addendum entered and electronically signed by Yong Lomeli MD 02/19/25 16:38:
addendum placed on wrong note. sorry
Addendum entered and electronically signed by Yong Lomeli MD 02/19/25 16:35:
I saw and examined the patient.
The COIN PURSE ASSEMBLER or PA's note was reviewed and I agree with the note.
Comment:
Pt Is a 69-year-old woman with a history of hypertension, breast cancer, lymphoma who presented with 24 hours of abdominal pain in the epigastric and right upper quadrant. She did have imaging with ultrasound that showed gallstones with a normal
duct. She did have mildly elevated LFTs and lipase greater than 4000. She denies any fevers or chills and she has not had this happen before
abd: tender epigastric
impression:
cholelithiasis
pancreatitis
plan:
increase IVF to I50cc/hr
likely gallstone related pancreatitis but will check triglycerides, IGG4.
pain managment
MRI/MRCP
eventual cholecystectomy
Original Note:
Medical History
-
Chief Complaint: Epigastric abdominal pain
History of Present Illness:
Patient is a 69 yo F with a PMH of HTN, hypothyroidism, breast cancer s/p RIGHT mastectomy, lymphoma s/p R-CHOP, and nonmelanotic skin cancers s/p excision. Ms. Orosco presents to the hospital with 24 hours of epigastric abdominal pain. Symptoms
began approximately an hour after having a roast beef sandwich for lunch yesterday. Her symptoms initially improved but then recurred later on in the afternoon/evening. Several episodes of nausea and vomiting. She currently has pain rated an 8
out of 10 within the epigastrium. No radiation to her RUQ or back. No fevers or chills. She denies any jaundice, pale stools, or tea colored urine. She denies any prior attacks of upper abdominal discomfort or knowledge of cholelithiasis.
Past Medical History
Past Medical History: Cancer (Breast, lymphoma s/p R-CHOP, nonmelanotic skin cancer), HTN and Hypothyroidism
Past Surgical History: Other (RIGHT mastectomy and adjuvant chemotherapy)
Social History
Tobacco: Non-Smoker
Alcohol: None
Drug: None
Family History
Family History: Reviewed & Not Pertinent
Allergies / Home Medications
Allergy/AdvReac Type Severity Reaction Status Date / Time
No Known Allergies Allergy Verified 02/18/25 22:49
�Medication �Instructions �Recorded �Confirmed �Type
calcium 500 mg (as 1 tab PO DAILY Supplement 08/01/24 02/19/25 History
carbonate)-vitamin D3 10 mcg (400
unit) tablet (Calcium 500 + D)
ezetimibe 10 mg tablet 10 mg PO DAILY cholesterol 08/01/24 02/19/25 History
levothyroxine 50 mcg tablet 50 mcg PO DAILY Thyroid 08/01/24 02/19/25 History
losartan 50 mg tablet 50 mg PO DAILY Blood Pressure 08/01/24 02/19/25 History
magnesium oxide 400 mg PO HS Supplement 08/01/24 02/19/25 History
pyridoxine (vitamin B6) 50 mg 50 mg PO DAILY #30 tabs 08/04/24 02/19/25 Rx
tablet
colchicine 0.6 mg capsule 0.6 mg PO DAILY 02/19/25 02/19/25 History
icosapent ethyl 1 gram capsule 1 g PO DAILY 02/19/25 02/19/25 History
tamoxifen 20 mg tablet 20 mg PO DAILY 02/19/25 02/19/25 History
Review of Systems
-
A 10 point review of systems was completed, and was negative except as per HPI.
Physical Exam
Vital Signs
Temp Pulse Resp BP Pulse Ox
97.8 F 97 18 134/75 97
02/19/25 07:33 02/19/25 07:33 02/19/25 07:33 02/19/25 07:33 02/19/25 07:33
02/18/25 02/19/25 02/20/25
06:59 06:59 06:59
Actual Weight 63.6 kg
Body Mass Index (BMI) 27.4
Lab Results
02/19/25 06:00
02/19/25 06:00
WBC 12.6 10^3/uL (4.8-10.8) H 02/19/25 06:00
Hgb 12.2 g/dL (12.0-16.0) 02/19/25 06:00
Hct 36.3 % (37.0-47.0) L 02/19/25 06:00
Plt Count 194 10^3/uL (130-400) 02/19/25 06:00
Abs Immat Gran (auto) 0.1 10^3/uL (0-0.05) H 02/18/25 22:57
Neutrophils % 76.3 % (42.2-75.2) H 02/18/25 22:57
Physical Exam
General: Well Developed, Well Nourished and Pain
HEENT: Normocephalic and Anicteric
Respiratory: Non Labored Respirations
Cardiac: Regular Rhythm
GI: Soft, Tender (Epigastrium), Distended (Mild) and Other (Non-peritoneal)
Skin: Warm and Dry
Neuro: Nonfocal/Grossly Intact
Data Reviewed
-
Ultrasound: Image Personally Visualized and interpreted and Report Reviewed by me
Labs: Labs Reviewed by me
Old Records: Reviewed
Assessment / Plan
-
Patient is a 69 yo F p/w pancreatitis likely of gallstone origin
The natural history and pathophysiology of biliary and stone disease was discussed. Role of cholecystectomy in preventing future episodes of pancreatitis and inflammation/attacks of her gallbladder was discussed. We briefly reviewed a minimally
invasive cholecystectomy. Recommend medical management for her pancreatitis by the hospitalist and GI service. Timing of cholecystectomy TBD based on recovery of her pancreatitis. All questions answered.
-- Timing of cholecystectomy TBD based on recover from pancreatitis
-- Medical management of pancreatitis per Hospitalist and GI
[2025-02-19] MEDS: TORADOL 30 MG IV ×2 (11:53→21:40)
--- NOTE | 2025-02-19 14:16 | CON.GI ---
Addendum entered and electronically signed by Yong Lomeli MD 02/19/25 16:38:
I saw and examined the patient.
The COUNTY ADMINISTRATOR or PA's note was reviewed and I agree with the note.
Comment:
Pt Is a 69-year-old woman with a history of hypertension, breast cancer, lymphoma who presented with 24 hours of abdominal pain in the epigastric and right upper quadrant. She did have imaging with ultrasound that showed gallstones with a normal
duct. She did have mildly elevated LFTs and lipase greater than 4000. She denies any fevers or chills and she has not had this happen before
abd: tender epigastric
impression:
cholelithiasis
pancreatitis
plan:
increase IVF to I50cc/hr
likely gallstone related pancreatitis but will check triglycerides, IGG4.
pain managment
MRI/MRCP
eventual cholecystectomy
Original Note:
Consultation
-
Date/Time Consultation Requested: 02/19/25 11:09
Date/Time Consultation Performed: 02/19/25 2:00
Requesting Provider: Dr Kavitha Burt
Performing Provider: Dr. Yong Lomeli
Reason for Consultation: gallstone pancreatitis
Medical History
Chief Complaint / HPI
Chief Complaint: abdominal and vomiting
History of Present Illness:
69yoF PMH DLBCL tx 2011, breast cancer [facility] recent start on tamoxifen, HTN, HLD, hypothyroidism presenting with abdominal pain, nausea, and vomiting.
Pt reports eating lunch yesterday with sharp, doubling over abdominal pain. Her pain resolved with time. She was scared to eat a large dinner and ate some yogurt and chicken causing recurrence of pain with 2 episodes of emesis. Pt reports
persistence of pain, leading to her presentation. She denies prior episodes like this. Denies blood in emesis.
Of note, pt transitioned from letrozole to tamoxifen a few months ago due to intolerance associated with peripheral edema. Both her DLBCL and breast cancer are otherwise in remission.
Past Medical History
Past Medical History: Cancer, HTN and Hypothyroidism
Past Surgical History: Other (mastectomy with lymph node dissection s/p radiation )
Social History
Personal:
Allergies / Home Medications
Allergy/AdvReac Type Severity Reaction Status Date / Time
No Known Allergies Allergy Verified 02/18/25 22:49
�Medication �Instructions �Recorded
calcium 500 mg (as 1 tab PO DAILY Supplement 08/01/24
carbonate)-vitamin D3 10 mcg (400
unit) tablet (Calcium 500 + D)
ezetimibe 10 mg tablet 10 mg PO DAILY cholesterol 08/01/24
levothyroxine 50 mcg tablet 50 mcg PO DAILY Thyroid 08/01/24
losartan 50 mg tablet 50 mg PO DAILY Blood Pressure 08/01/24
magnesium oxide 400 mg PO HS Supplement 08/01/24
pyridoxine (vitamin B6) 50 mg 50 mg PO DAILY #30 tabs 08/04/24
tablet
colchicine 0.6 mg capsule 0.6 mg PO DAILY 02/19/25
icosapent ethyl 1 gram capsule 1 g PO DAILY 02/19/25
tamoxifen 20 mg tablet 20 mg PO DAILY 02/19/25
Review of Systems
-
History Source: Patient
All other systems: A 12 pt ROS was Negative except as stated above in HPI
Constitutional: Denies Fever
Cardiac: Reports Diaphoresis (with pain)
Abdomen/GI: Reports Abdominal Pain, Nausea and Vomiting
Vital Signs
Temp Pulse Resp BP Pulse Ox
97.8 F 97 18 134/75 97
02/19/25 07:33 02/19/25 07:33 02/19/25 07:33 02/19/25 07:33 02/19/25 07:33
Physical Exam
Exam
General: No Apparent Distress
HEENT: Normocephalic, Anicteric and Moist Mucous Membranes
Respiratory: Clear and Non Labored Respirations (limited due to abdominal pain)
Cardiac: S1/S2 and Regular Rhythm
GI: Soft, Non Distended and Tender (RUQ, epigastric with voluntary guarding, nontender L side)
Musculoskeletal: No Edema
Neuro: AO x 3 and Nonfocal/Grossly Intact
Psych: Calm
Results
WBC 12.6 10^3/uL (4.8-10.8) H 02/19/25 06:00
Hgb 12.2 g/dL (12.0-16.0) 02/19/25 06:00
Hct 36.3 % (37.0-47.0) L 02/19/25 06:00
MCV 94.5 fL (81.0-99.0) 02/19/25 06:00
Plt Count 194 10^3/uL (130-400) 02/19/25 06:00
Absolute Neuts (auto) 11.5 10^3/uL (1.4-6.5) H 02/18/25 22:57
Sodium 132 mmol/L (135-145) L 02/19/25 06:00
Potassium 4.7 mmol/L (3.5-5.1) D 02/19/25 06:00
Chloride 101 mmol/L (98-107) 02/19/25 06:00
Carbon Dioxide 24 mmol/L (22-30) 02/19/25 06:00
BUN 12 mg/dl (7-17) 02/19/25 06:00
Creatinine 0.7 mg/dL (0.6-1.0) 02/19/25 06:00
Calcium 8.7 mg/dl (8.4-10.2) 02/19/25 06:00
Total Bilirubin 1.3 mg/dl (0.2-1.3) 02/19/25 06:00
AST 112 U/L (14-36) H 02/19/25 06:00
ALT 101 U/L (0-35) H 02/19/25 06:00
Alkaline Phosphatase 52 U/L (38-126) 02/19/25 06:00
Lipase > 4000 U/L (23-300) H* 02/18/25 22:57
Diagnostic Image Results: US
IMPRESSION: Cholelithiasis. Gall bladder wall thickening with rim of pericholecystic edema. In the correct clinical setting, these findings are suggestive of acute cholecystitis.
No evidence of biliary ductal dilation. No evidence for bile duct calculus.
Prior GI Procedures:
EGD:
Colonoscopy:
Assessment / Plan
-
69yoF PMH DLBCL tx 2011, breast cancer [facility] recent start on tamoxifen, HTN, HLD, hypothyroidism presenting with acute cholecystitis and pancreatitis.
AFVSS. No evidence of choledocholithiasis or CBD dilation. Lipase >4000. Total bilirubin down 1.3 from 1.7. AST 112, ALT 101, ALP 52. WBC improved to 12.6 from 15.1.
CBD is not dilated on US but chemical evidence of pancreatitis with abdominal pain. Pt recently started tamoxifen a few months ago, possibly precipitating events. Can be implicated in both cholelithiasis and pancreatitis. Pancreatitis due to passed
stone vs tamoxifen.
#pancreatitis
- Continue supportive measures IVF, pain management
- Trial clears
- Lipid panel
#acute cholecystitis
- Surgery planning cholecystomy once pancreatitis pain resolves
PENDING ATTENDING RECOMMENDATIONS
-
-
Thank you for consultation and allowing me to participate in the patient's care. Please call the seo professional GI physician during the after hours with any questions or concerns.
--- NOTE | 2025-02-19 15:47 | EDCM ---
CM reviewed chart and met with pt and son bedside in ED. Lives with in 2 story home, no IVY. Has first floor half bath, full flight to second floor bedroom and full bath.
Independent in ADLs, personal care and ambulation at baseline. No assistive devices. Has Lymphedema pump and sleeves also grab bars in shower.
Confirms prescription coverage.
Hx [facility] after Mastectomy, no hx SNF
PCP: Horacio Steele
Pharmacy: [facility] for local scripts, also uses [facility]
Anticipate discharge home after cholecystectomy, CM will continue to follow for all discharge planning needs.
[2025-02-20] MEDS: ZOSYN 50 IV ×5 (00:11→23:06)
[2025-02-20] MEDS: DILAUDID 0.5 MG IV ×4 (00:17→17:41)
[2025-02-20] MEDS: SYNTHROID 50 MCG PO (05:32)
[2025-02-20] MEDS: LR 1000 IV ×2 (05:35→13:15)
[2025-02-20 07:05] VITALS: BP 153/92
[2025-02-20] MEDS: PROTONIX IV 40 MG IV (07:57)
[2025-02-20] MEDS: NSS (PRESERVATIVE FREE) 10 ML IV (07:57)
--- NOTE | 2025-02-20 08:36 | W.PN.GI.CBS2 ---
Addendum entered and electronically signed by Yong Lomeli MD 02/20/25 12:14:
I saw and evaluated the patient. I reviewed the resident�s note and agree with findings and plan as documented in the resident�s note.
Pt with abdominal pain continuing
abd: tender ruq
MRI: cholecystitis; no biliary duct dilation
impression:
cholecystitis
plan:
pt for OR
will sign off
Original Note:
Today's Communication / Plan
-
Pending attending recommendations.
MRCP pending
IgG4 pending
Triglyceride panel pending
Continue supportive measures
Assessment / Plan
-
69yoF PMH DLBCL tx 2011, breast cancer [facility] recent start on tamoxifen, HTN, HLD, hypothyroidism presenting with acute cholecystitis and pancreatitis.
AFVSS. No evidence of choledocholithiasis or CBD dilation. Lipase >4000. Total bilirubin down 1.3 from 1.7. AST 112, ALT 101, ALP 52. WBC improved to 12.6 from 15.1.
CBD is not dilated on US but chemical evidence of pancreatitis with abdominal pain. Pt recently started tamoxifen a few months ago, possibly precipitating events. Can be implicated in both cholelithiasis and pancreatitis. Pancreatitis due to passed
stone vs tamoxifen.
AFVSS. Worsened pain today, pending today's labs. Pt reports orange tinged urine; follow bilirubin.
#pancreatitis
- Continue supportive measures IVF, pain management
- Continue clears as tolerated
- Lipid panel, IgG4 pending
- Pending MRCP
- Encouraged toradol as an antiinflammatory vs controlling pain solely with dilaudid
#acute cholecystitis
- Surgery planning cholecystomy once pancreatitis pain resolves
#constipation
- Bowel regimen added
Subjective
Subjective
Date of Service: February 20, 2025
Pt reports worsened pain this morning. She has tolerated a clear diet, though she has consumed minimal fluids given she feels like she has urinated many times being on IVF. Denies nausea, vomiting. Reports constipation,r requesting a bowel regimen.
Objective
Data Reviewed
Laboratory Data:
Laboratory Results
Magnesium 1.7 mg/dl (1.6-2.3) 02/19/25 06:00
Total Bilirubin 1.3 mg/dl (0.2-1.3) 02/19/25 06:00
AST 112 U/L (14-36) H 02/19/25 06:00
ALT 101 U/L (0-35) H 02/19/25 06:00
Alkaline Phosphatase 52 U/L (38-126) 02/19/25 06:00
Lipase > 4000 U/L (23-300) H* 02/18/25 22:57
Vital Signs and I&O:
Vital Signs
Temp Pulse Resp BP Pulse Ox
99.1 F 102 18 153/92 98
02/20/25 07:05 02/20/25 07:05 02/20/25 07:05 02/20/25 07:05 02/20/25 07:05
I&O
02/19/25 02/20/25 02/21/25
06:59 06:59 06:59
Intake Total 2180 / 2180
Balance 2180 / 2180
Physical Exam
Physical Exam
HEENT: Anicteric and Moist mucous membranes
Cardiology: Normal Sinus Rhythm
Pulmonary: Other (nonlabored breathing)
GI: Soft, Non Distended and Tender (diffusely )
Extremities: No Edema
Neuro: Non Focal
[2025-02-20] MEDS: TORADOL 30 MG IV (09:45)
[2025-02-20] MEDS: COLACE 100 MG PO (09:49)
[2025-02-20] MEDS: MIRALAX 17 GRAMS PO (09:49)
[2025-02-20 10:14] LABS: Hematocrit 38.2 % (37.0-47.0); Hemoglobin 13.0 g/dL (12.0-16.0); Mean Corp Hgb Conc. 34.0 g/dL (33.0-37.0); Mean Corpuscular Volume 95.5 fL (81.0-99.0); Platelet Count 200 10^3/uL (130-400); Red Cell Dist. Width 13.0 % (11.5-14.5)
[2025-02-20 10:40] LABS: ALT (SGPT) 69 U/L (0-35); AST (SGOT) 48 U/L (14-36); Albumin 3.4 g/dl (3.5-5.0); Alkaline Phosphatase 46 U/L (38-126); Blood Urea Nitrogen 9 mg/dl (7-17); Calcium 8.2 mg/dl (8.4-10.2); Carbon Dioxide 24 mmol/L (22-30); Chloride 101 mmol/L (98-107); Estimated Creatinine Clearance 62 ml/min; Glucose 90 mg/dl (70-99); HDL Cholesterol 77 mg/dl; LDL Cholesterol, Calculated 58 mg/dl; Lipase 836 U/L (23-300); Potassium 3.9 mmol/L (3.5-5.1); Sodium 132 mmol/L (135-145); Total Protein 6.0 g/dl (6.3-8.2); Very Low Density Lipoprotein 12 mg/dl (0-30); eGFR > 60.00
--- NOTE | 2025-02-20 10:42 | W.PN.GS2 ---
Today's Communication / Plan
-
Okay for clear liquids as tolerated, n.p.o. at midnight.
Given the concern for acute cholecystitis reasonable to continue with antibiotics.
IV fluids should be titrated to urine output to avoid fluid overload.
Strict I's and O's
General Surgery will continue to follow, timing of cholecystectomy to be determined but tentatively put on the OR schedule for tomorrow.
Assessment / Plan
-
This is a 69-year-old female History of breast cancer who presents with acute abdominal pain found to have elevated lipase, bilirubin and LFTs as well as a leukocytosis (all improving) with ultrasound and subsequently MRI imaging confirming
cholelithiasis as well as pericholecystic edema concerning for both pancreatitis with possible superimposed acute cholecystitis.
Okay for clear liquids as tolerated, n.p.o. at midnight.
Given the concern for acute cholecystitis reasonable to continue with antibiotics.
IV fluids should be titrated to urine output to avoid fluid overload.
Strict I's and O's
General Surgery will continue to follow, timing of cholecystectomy to be determined but tentatively put on the OR schedule for tomorrow.
Time Spent
Total Time Spent with Patient (in minutes): 20
Subjective Data
-
Date of Service: February 20, 2025
Interval Events:
No acute events overnight. Slept ok. Pain worse. Mild nausea, no vomiting. Early satiety even with liquids. +bowel function.
Objective Data
-
Intake and Output
02/19/25 02/20/25 02/21/25
06:59 06:59 06:59
Intake Total 2179 / 0
Balance 2179 / 218
Intake:
Oral fluids 480 / 480
IV fluids (Total) 1600 / 1600
IV piggybacks 100 / 100
Vital Signs
Temp Pulse Resp BP Pulse Ox
99.1 F 102 18 153/92 98
11/05/25 07:05 02/20/25 07:05 02/20/25 07:05 02/20/25 07:05 02/20/25 07:05
Lab Results
02/20/25 09:52
02/20/25 09:52
Calcium 8.2 mg/dl (8.4-10.2) L 02/20/25 09:52
Magnesium 1.7 mg/dl (1.6-2.3) 02/19/25 06:00
Total Bilirubin 1.2 mg/dl (0.2-1.3) 02/20/25 09:52
Direct Bilirubin 0.8 mg/dl (0.0-0.4) H 02/19/25 06:00
AST 48 U/L (14-36) H 02/20/25 09:52
ALT 69 U/L (0-35) H 02/20/25 09:52
Alkaline Phosphatase 46 U/L (38-126) 02/20/25 09:52
Total Protein 6.0 g/dl (6.3-8.2) L 02/20/25 09:52
Albumin 3.4 g/dl (3.5-5.0) L 02/20/25 09:52
Physical Exam
-
GENERAL/NEURO: Awake, Alert, no distress
CHEST: Unlabored breathing on RA
ABDOMEN: Soft, diffusely tender
Patient has a nicholson catheter: No
Patient has a central line: No
--- NOTE | 2025-02-20 11:47 | W.PN.HOSP.TC ---
Today's Communication/Plan
-
N.p.o. after midnight for possible lap layo tomorr
Assessment / Plan
Assessment / Plan
Impression:
Patient is a 69y F with PMH significant for DLBCL, breast cancer, hypertension and hypothyroidism who presents to ED complaining of abdominal pain. Patient states that she was feeling well until this afternoon when she developed epigastric
abdominal discomfort. Pain was initially quite severe, but passed within an hour or so. She had no associated N/V, fevers / chills, etc at that time.
Around diner time, the pain recurred. This time accompanied by nausea with 2 episodes of non-bloody emesis. Emesis consisted primarily of undigested food from dinner and lunch.
Patient had persistent, severe pain and presented to the ED for further evaluation.
She denies any prior history of similar symptoms.
Assessment/plan:
Acute Calculous Cholecystitis
- Admit for further evaluation and treatment.
- IVFs, pain control and supportive care.
- IV abx with Zosyn for now.
- Surgery consulted, cholecystectomy in am.
- clear liquid, n.p.o. after midnight
Acute pancreatitis
Possible secondary to passing gallbladder stone.
But ultrasound shows normal CBD diameter.
And also normal alk phos.
Treatment with IV fluid/nausea and pain control.
clear liquid
normal triglyceride level
Improved lipase level.
Appreciate GI input.
MRCP shows no CBD dilation but confirm acute pancreatitis/acute cholecystitis
Sepsis, secondary to acute pancreatitis.
Meets sepsis criteria admission with leukocytosis and tachycardia.
Continue IV antibiotics
urine culture negative
Hyponatremia
Sodium improved
Benign Hypertension
Resume losartan
Hypothyroidism
- Continue current T4 replacement.
Pseudogout
- Hold PO medication / colchicine acutely.
- Follow for any changes in joint pain, swelling, etc.
Breast Cancer
- s/p lumpectomy / initial treatment.
- On letrozole x years and developed adverse effects - now swicthed to tamoxifen.
DLBCL
- In remission s/p remote R-CHOP.
CODE STATUS: Full code
DVT prophylaxis: SCDs
Diet: CLD- N.p.o. after midnight
Disposition: N.p.o. after midnight for possible lap layo tomorrow
Total time spent on today's encounter was 55 minutes which included time spent in counseling the patient/family regarding diagnosis and treatment plan as listed above, goals of care, and symptom management. Case was discussed with nursing staff,
specialists, and care coordinators/case management. All labs and imaging personally reviewed by me. Remainder the time spent in detailed review of previous records, lab data, imaging, and other medical provider documentation.
Anticipated Discharge: 24 - 48 hours
Subjective/Interval History
-
Date of Service: February 20, 2025
Patient seen and examined at bedside, still with abdominal pain but improved compared to yesterday, denies any chest pain or shortness of breath.
Objective Data
-
Labs:
Laboratory Results
02/20/25
09:52
WBC 15.6 H
Hgb 13.0
Hct 38.2
Plt Count 200
Sodium 132 L
Potassium 3.9
Chloride 101
Carbon Dioxide 24
BUN 9
Creatinine 0.7
Glucose 90
Calcium 8.2 L
Total Bilirubin 1.2
AST 48 H
ALT 69 H
Alkaline Phosphatase 46
Vital Signs:
Vital Signs
Temp Pulse Resp BP Pulse Ox
99.1 F 102 18 153/92 98
02/20/25 07:05 02/20/25 07:05 02/20/25 07:05 02/20/25 07:05 02/20/25 07:05
I&O
02/19/25 02/20/25 02/21/25
06:59 06:59 06:59
Intake Total 2179
Balance 2179
Physical Exam
-
General: Well Developed, Well Nourished, No Apparent Distress and Comfortable
HEENT: Normocephalic, Atraumatic, Moist Mucous Membranes, No Ptosis, PERRLA and Nose Appears Normal
Respiratory: Clear to Auscultation and Non Labored Respirations
Cardiac: Regular Rhythm and S1/S2
Breast: Deferred by me
GI: Soft, Nondistended, Normal Bowel Sounds and Tender (Epigastric)
Genito-urinary: No Costovertebral Tender
Musculoskeletal: No Clubbing, No Cyanosis and No Edema
Skin: Warm
Neuro: Awake, Alert, Oriented, AO x 3 and No Motor Deficits
Psych: Calm
[2025-02-20 15:00] VITALS: BP 185/89
[2025-02-20 23:05] VITALS: BP 149/90
[2025-02-21] VITALS (9 sets, daily range): BP systolic 120–152; BP diastolic 70–99
[2025-02-21] MEDS: ZOSYN 50 IV ×3 (05:20→17:16)
[2025-02-21] MEDS: SYNTHROID 50 MCG PO (05:20)
[2025-02-21 07:47] LABS: Hematocrit 32.7 % (37.0-47.0); Hemoglobin 11.3 g/dL (12.0-16.0); Mean Corp Hgb Conc. 34.6 g/dL (33.0-37.0); Mean Corpuscular Volume 92.6 fL (81.0-99.0); Platelet Count 166 10^3/uL (130-400); Red Cell Dist. Width 12.6 % (11.5-14.5)
[2025-02-21] MEDS: PROTONIX IV 40 MG IV (08:19)
[2025-02-21] MEDS: NSS (PRESERVATIVE FREE) 10 ML IV (08:20)
[2025-02-21] MEDS: TORADOL 30 MG IV (08:33)
[2025-02-21 08:46] LABS: ALT (SGPT) 45 U/L (0-35); AST (SGOT) 28 U/L (14-36); Albumin 3.0 g/dl (3.5-5.0); Alkaline Phosphatase 61 U/L (38-126); Blood Urea Nitrogen 7 mg/dl (7-17); Calcium 7.8 mg/dl (8.4-10.2); Carbon Dioxide 22 mmol/L (22-30); Chloride 102 mmol/L (98-107); Estimated Creatinine Clearance 62 ml/min; Glucose 65 mg/dl (70-99); Potassium 3.4 mmol/L (3.5-5.1); Sodium 132 mmol/L (135-145); Total Protein 5.6 g/dl (6.3-8.2); eGFR > 60.00
[2025-02-21] MEDS: KCL 160 MEQ IV (09:57)
--- NOTE | 2025-02-21 10:47 | W.PN.GS2 ---
Today's Communication / Plan
-
`
Assessment / Plan
-
Assessment: 69-year-old female with acute gallstone mediated pancreatitis, possible cholecystitis
AFVSS -low-grade tachycardia
Persistent leukocytosis, LFTs improving, lipase improving yesterday
Clinically stable to proceed cholecystectomy and there is a possibility that the residual leukocytosis may be due to cholecystitis more so than acute pancreatitis.
Laparoscopic cholecystectomy with cholangiogram was reviewed in detail including operative technique utilizing diagrams and alternative management options. The potential benefits and risks of the procedure were reviewed in detail, including but not
limited to infectious or wound healing complications, bleeding, bile leak, injury to biliary tree, iatrogenic injury to surrounding viscera and post cholecystectomy syndrome. Reviewed the typical postoperative recovery.
Any of the patient's or her 's concerns or questions were fully addressed and informed consent was obtained.
Plan: Patient is added onto the OR schedule today for laparoscopic cholecystectomy
Continue current supportive care pending availability of OR
Zosyn
Subjective Data
-
Date of Service: February 21, 2025
Patient seen and examined. at bedside.
Continued abdominal pain but slowly improving.
Slight nausea, ongoing anorexia.
Passing flatus and had a bowel movement today
Objective Data
-
Intake and Output
02/20/25 02/21/25 02/22/25
06:59 06:59 06:59
Intake Total 2180 / 2180 1060 / 1060
Balance 2180 / 2180 1060 / 1060
Intake:
Oral fluids 480 / 480 960 / 960
IV fluids (Total) 1600 / 1600
IV piggybacks 100 / 100 100 / 100
Other:
Number of approximated SMALL 4
amounts of urine
Number of approximated MODERATE 1
amounts of urine
Vital Signs
Temp Pulse Resp BP Pulse Ox
98.9 F 103 18 149/90 99
02/20/25 23:05 02/20/25 23:05 02/20/25 23:05 02/20/25 23:05 02/20/25 23:05
Lab Results
02/21/25 07:17
02/21/25 07:17
Calcium 7.8 mg/dl (8.4-10.2) L 02/21/25 07:17
Magnesium 1.7 mg/dl (1.6-2.3) 02/19/25 06:00
Total Bilirubin 1.2 mg/dl (0.2-1.3) 02/21/25 07:17
Direct Bilirubin 0.8 mg/dl (0.0-0.4) H 02/19/25 06:00
AST 28 U/L (14-36) 02/21/25 07:17
ALT 45 U/L (0-35) H 02/21/25 07:17
Alkaline Phosphatase 61 U/L (38-126) 02/21/25 07:17
Total Protein 5.6 g/dl (6.3-8.2) L 02/21/25 07:17
Albumin 3.0 g/dl (3.5-5.0) L 02/21/25 07:17
Physical Exam
-
NAD AAO x 3
ABD: Soft, mild tenderness palpation of the right abdomen. No rebound or guarding.
--- NOTE | 2025-02-21 11:07 | PN.CDI ---
CDI
- -
CDI:
Physician Documentation Request
Admit Date: 02/19/25 02:08
Dear Doctor,
Sepsis without organ dysfunction is no longer used within our health system. These cases are now coded as the primary infection, not as sepsis.
[facility] is using an adapted version of the 2016 Third International Consensus Definitions for Sepsis and Septic Shock (Sepsis-3) where sepsis is defined as life threatening organ dysfunction caused by a deregulated host response to infection.
Please reference the official [facility] Sepsis Recognition Tool for further information, which is available on the Intranet under Infection Prevention.
Clinical Indicators Include:
02/21 Hospitalist PN: 'Sepsis, secondary to acute pancreatitis.
Meets sepsis criteria admission with leukocytosis and tachycardia.'
HR: 93
RR: 22
WBC: 15.1
Based on your medical judgment, please review the documentation pertaining to Sepsis due to (Enter infection) and further clarify the clinical indicators and any organ dysfunction associated with the diagnosis, if applicable:
� Sepsis ruled out, (list infection) only
� Sepsis due to (list infection) with organ dysfunction of
� Other
� Clinically Unable to Determine
Use of terms such as suspected, likely, concern for, or probable (associated with a specific diagnosis that is being evaluated, monitored, or treated as if it exists) are acceptable and can be coded in the inpatient setting when documented at the
time of discharge.
Please use your independent medical judgement in providing your response.
Thank you,
Yas Perez RN, BSN
CDI Specialist
Available via [place] text
--- NOTE | 2025-02-21 11:52 | W.PN.HOSP.TC ---
Today's Communication/Plan
-
for lap layo today
Assessment / Plan
Assessment / Plan
Impression:
Patient is a 69y F with PMH significant for DLBCL, breast cancer, hypertension and hypothyroidism who presents to ED complaining of abdominal pain. Patient states that she was feeling well until this afternoon when she developed epigastric
abdominal discomfort. Pain was initially quite severe, but passed within an hour or so. She had no associated N/V, fevers / chills, etc at that time.
Around diner time, the pain recurred. This time accompanied by nausea with 2 episodes of non-bloody emesis. Emesis consisted primarily of undigested food from dinner and lunch.
Patient had persistent, severe pain and presented to the ED for further evaluation.
She denies any prior history of similar symptoms.
seen by both GI/ surgery, MRCP done shows no CBD dilation, for lap layo
Assessment/plan:
Acute Calculous Cholecystitis
- Admit for further evaluation and treatment.
- IVFs, pain control and supportive care.
- IV abx with Zosyn for now.
- Surgery consulted, cholecystectomy today.
Acute pancreatitis
Possible secondary to passing gallbladder stone.
But ultrasound shows normal CBD diameter.
And also normal alk phos.
Treatment with IV fluid/nausea and pain control.
clear liquid
normal triglyceride level
Improved lipase level.
Appreciate GI input.
MRCP shows no CBD dilation but confirm acute pancreatitis/acute cholecystitis
Sepsis, (ruled out).
No indication for organ dysfunction
Hyponatremia
Sodium improved
Benign Hypertension
Resume losartan
Hypothyroidism
- Continue current T4 replacement.
Pseudogout
- Hold PO medication / colchicine acutely.
- Follow for any changes in joint pain, swelling, etc.
Breast Cancer
- s/p lumpectomy / initial treatment.
- On letrozole x years and developed adverse effects - now swicthed to tamoxifen.
DLBCL
- In remission s/p remote R-CHOP.
CODE STATUS: Full code
DVT prophylaxis: SCDs
Diet: N.p.o.
Disposition: for piedad vasques today
Family communication: Discussed with at bedside.
Total time spent on today's encounter was 55 minutes which included time spent in counseling the patient/family regarding diagnosis and treatment plan as listed above, goals of care, and symptom management. Case was discussed with nursing staff,
specialists, and care coordinators/case management. All labs and imaging personally reviewed by me. Remainder the time spent in detailed review of previous records, lab data, imaging, and other medical provider documentation.
Anticipated Discharge: 24 - 48 hours
Subjective/Interval History
-
Date of Service: February 21, 2025
Patient seen and examined at bedside, at bedside, denies any chest pain or shortness of breath, improved abdominal pain, for piedad vasques today.
Objective Data
-
Labs:
Laboratory Results
02/21/25
07:17
WBC 14.3 H
Hgb 11.3 L
Hct 32.7 L
Plt Count 166
Sodium 132 L
Potassium 3.4 L
Chloride 102
Carbon Dioxide 22
BUN 7
Creatinine 0.7
Glucose 65 L
Calcium 7.8 L
Total Bilirubin 1.2
AST 28
ALT 45 H
Alkaline Phosphatase 61
Vital Signs:
Vital Signs
Temp Pulse Resp BP Pulse Ox
98.9 F 103 18 149/90 99
02/20/25 23:05 02/20/25 23:05 02/20/25 23:05 02/20/25 23:05 02/20/25 23:05
I&O
02/20/25 02/21/25 02/22/25
06:59 06:59 06:59
Intake Total 2180 / 2180 1060 / 1060
Balance 2179
Physical Exam
-
General: Well Developed, Well Nourished, No Apparent Distress and Comfortable
HEENT: Normocephalic, Atraumatic, Moist Mucous Membranes, No Ptosis, PERRLA and Nose Appears Normal
Respiratory: Clear to Auscultation and Non Labored Respirations
Cardiac: Regular Rhythm and S1/S2
Breast: Deferred by me
GI: Soft, Nondistended, Normal Bowel Sounds and Tender (Epigastric)
Genito-urinary: No Costovertebral Tender
Musculoskeletal: No Clubbing, No Cyanosis and No Edema
Skin: Warm
Neuro: Awake, Alert, Oriented, AO x 3 and No Motor Deficits
Psych: Calm
--- NOTE | 2025-02-21 12:26 | W.SUR.PREOP ---
Pre-Operative Surgical Note
-
I have examined this patient prior to the performance of the scheduled procedure.
The patient's condition is unchanged from the time of the current History and
Physical and the patient is able to undergo the scheduled procedure.
--- NOTE | 2025-02-21 15:01 | W.IMMPOSTOP ---
Addendum entered and electronically signed by Porfirio Vazquez MD 02/21/25 15:24:
#[id number]
Original Note:
Surgical Immed Post Op Note
-
Primary Surgeon: Porfirio Vazquez MD
Assisting Surgeon: Izabela Drew NP
Zack Price
Pre-op Diagnosis: GS mediated acute pancreatitis
Post-op Diagnosis: GS mediated acute pancreatitis; probable secondary cholecystitis without cystic duct obstruction
Procedure Performed: Laparoscopic Cholecystectomy with cholangiogram
Anesthesia Type: GETA + 0.25%Marcaine with epi
Specimen / Cultures: GB/none
Estimated Blood Loss: 20mL
Complications: none immediate
Operative Findings: distended GB with stones and surrounding reactive inflammation. cyst needle decompression to aid in grasping and retracting. saponification around kishan, gastrohepatic ligament and 1st portion of duo visualized. significant
retroperitoneal edema. IOC normal. GB removed intact and extracted at epigastric trocar site.
Plan: clears initially post op monitoring for continues clinical improvement in pancreatitis
check WBC and CMP tomorrow AM
updated pt and son post op in waiting area
--- NOTE | 2025-02-21 16:09 | CM ---
To OR today for lap choly.
Independent prior to surgery.
Started on clear liquids.
PLAN Home no anticipated needs
[2025-02-21] MEDS: DILAUDID 0.25 MG IV (20:27)
[2025-02-22] MEDS: ZOSYN 50 IV ×4 (00:30→17:24)
[2025-02-22 03:00] VITALS: BP 132/77
[2025-02-22] MEDS: DILAUDID 0.25 MG IV ×5 (03:37→20:06)
[2025-02-22] MEDS: SYNTHROID 50 MCG PO (05:51)
[2025-02-22 07:30] VITALS: BP 134/70
[2025-02-22] MEDS: NSS (PRESERVATIVE FREE) 10 ML IV (08:14)
[2025-02-22] MEDS: PROTONIX IV 40 MG IV (08:15)
--- NOTE | 2025-02-22 08:24 | W.PN.GS2 ---
Today's Communication / Plan
-
Clears Plus supplements.
Assessment / Plan
-
Assessment: 69-year-old female with acute gallstone mediated pancreatitis, possible cholecystitis. POD #1 laparoscopic cholecystectomy. Expected postoperative course.
AFVSS, Blood work pending, exam reassuring.
Imaging: None
Labs: BMP, CBC, mag, Phos
Diet: Will keep her on clears with supplements. I would expect a few days before we are able to advance her diet given intraoperative findings.
Analgesia: Per primary
DVT PPx
Activity: Ad Kareen, out of bed and ambulate as able.
Patient agreeable to plan of care above.
General surgery will continue to follow.
Time Spent
Total Time Spent with Patient (in minutes): 20
Subjective Data
-
Date of Service: February 22, 2025
Interval Events:
No acute events overnight. Slept well. Pain Controlled but still very uncomfortable. Endorses some nausea and bloating no vomiting. +bowel function. Tolerating liquid diet.
Objective Data
-
Intake and Output
02/21/25 02/22/25 02/23/25
06:59 06:59 06:59
Intake Total 1060 / 1060 100 / 100
Balance 1060 / 1060 100 / 100
Intake:
Oral fluids 960 / 960
IV fluids (Total) 100 / 100
normsol 100 / 100
IV piggybacks 100 / 100
Other:
Number of approximated SMALL 4
amounts of urine
Number of approximated MODERATE 1 2
amounts of urine
Number of approximated LARGE 1
amounts of urine
Vital Signs
Temp Pulse Resp BP Pulse Ox
98.1 F 90 16 134/70 97
02/22/25 07:30 02/22/25 07:30 02/22/25 07:30 02/22/25 07:30 02/22/25 07:30
Calcium 7.8 mg/dl (8.4-10.2) L 02/21/25 07:17
Magnesium 1.7 mg/dl (1.6-2.3) 02/19/25 06:00
Total Bilirubin 1.2 mg/dl (0.2-1.3) 02/21/25 07:17
Direct Bilirubin 0.8 mg/dl (0.0-0.4) H 02/19/25 06:00
AST 28 U/L (14-36) 02/21/25 07:17
ALT 45 U/L (0-35) H 02/21/25 07:17
Alkaline Phosphatase 61 U/L (38-126) 02/21/25 07:17
Total Protein 5.6 g/dl (6.3-8.2) L 02/21/25 07:17
Albumin 3.0 g/dl (3.5-5.0) L 02/21/25 07:17
Physical Exam
-
GENERAL/NEURO: Awake, Alert, no distress
CHEST: Unlabored breathing on RA
ABDOMEN: Soft, appropriately tender, mildly distended, incisions clean dry and intact
Patient has a nichoslon catheter: No
Patient has a central line: No
[2025-02-22 08:57] LABS: ALT (SGPT) 47 U/L (0-35); AST (SGOT) 34 U/L (14-36); Albumin 3.2 g/dl (3.5-5.0); Alkaline Phosphatase 70 U/L (38-126); Blood Urea Nitrogen 9 mg/dl (7-17); Calcium 7.8 mg/dl (8.4-10.2); Carbon Dioxide 22 mmol/L (22-30); Chloride 103 mmol/L (98-107); Estimated Creatinine Clearance 72 ml/min; Glucose 82 mg/dl (70-99); Lipase 54 U/L (23-300); Potassium 4.0 mmol/L (3.5-5.1); Sodium 131 mmol/L (135-145); Total Protein 6.0 g/dl (6.3-8.2); eGFR > 60.00
[2025-02-22 09:31] LABS: Hematocrit 32.9 % (37.0-47.0); Hemoglobin 11.2 g/dL (12.0-16.0); Mean Corp Hgb Conc. 34.0 g/dL (33.0-37.0); Mean Corpuscular Volume 92.4 fL (81.0-99.0); Platelet Count 214 10^3/uL (130-400); Red Cell Dist. Width 12.3 % (11.5-14.5)
[2025-02-22 11:30] VITALS: BP 135/76
--- NOTE | 2025-02-22 14:00 | W.PN.HOSP.TC ---
Today's Communication/Plan
-
ADAT - CLD
pain control
Abx
Assessment / Plan
Assessment / Plan
Impression:
Patient is a 69y F with PMH significant for DLBCL, breast cancer, hypertension and hypothyroidism who presents to ED complaining of abdominal pain. Patient states that she was feeling well until this afternoon when she developed epigastric
abdominal discomfort. Pain was initially quite severe, but passed within an hour or so. She had no associated N/V, fevers / chills, etc at that time.
Around diner time, the pain recurred. This time accompanied by nausea with 2 episodes of non-bloody emesis. Emesis consisted primarily of undigested food from dinner and lunch.
Patient had persistent, severe pain and presented to the ED for further evaluation.
She denies any prior history of similar symptoms.
seen by both GI/ surgery, MRCP done shows no CBD dilation, for lap layo
Assessment/plan:
Acute Calculous Cholecystitis
- Admit for further evaluation and treatment.
- IVFs, pain control and supportive care.
- IV abx with Zosyn
- Surgery consulted, [id number]
- ADAT
Acute pancreatitis
Possible secondary to passing gallbladder stone.
But ultrasound shows normal CBD diameter.
And also normal alk phos.
Treatment with IV fluid/nausea and pain control.
clear liquid
normal triglyceride level
Improved lipase level.
Appreciate GI input.
MRCP shows no CBD dilation but confirm acute pancreatitis/acute cholecystitis
Hyponatremia
Monitor
Benign Hypertension
Resume losartan
Hypothyroidism
- Continue current T4 replacement.
Pseudogout
- Hold PO medication / colchicine acutely.
- Follow for any changes in joint pain, swelling, etc.
Breast Cancer
- s/p lumpectomy / initial treatment.
- On letrozole x years and developed adverse effects - now swicthed to tamoxifen.
DLBCL
- In remission s/p remote R-CHOP.
CODE STATUS: Full code
DVT prophylaxis: hsq
Diet: ADAT
Anticipated Discharge: 24 - 48 hours
Subjective/Interval History
-
Date of Service: February 22, 2025
Advancing diet
Objective Data
-
Labs:
Laboratory Results
02/22/25
07:40
WBC 15.6 H
Hgb 11.2 L
Hct 32.9 L
Plt Count 214 D
Sodium 131 L
Potassium 4.0
Chloride 103
Carbon Dioxide 22
BUN 9
Creatinine 0.6
Glucose 82
Calcium 7.8 L
Total Bilirubin 0.9
AST 34
ALT 47 H
Alkaline Phosphatase 70
Vital Signs:
Vital Signs
Temp Pulse Resp BP Pulse Ox
98.2 F 87 16 135/76 98
02/22/25 11:30 02/22/25 11:30 02/22/25 11:30 02/22/25 11:30 02/22/25 11:30
I&O
02/21/25 02/22/25 02/23/25
06:59 06:59 06:59
Intake Total 1060 / 1060 100 / 100
Balance 1060 / 1060 100 / 100
Review of Systems
-
All other systems: Reviewed and negative
Neuro: Reports Numbness (paresthesia left 5th finger)
Data Reviewed
-
Ultrasound: Report Reviewed by me
MRI: Report Reviewed by me
[2025-02-22 14:13] VITALS: BMI 26.7
[2025-02-22 15:15] VITALS: BP 139/75
[2025-02-22] MEDS: HEPARIN 5000 UNITS SC (15:25)
[2025-02-22 19:00] VITALS: BP 137/73
[2025-02-22] MEDS: DILAUDID 0.5 MG IV (22:30)
[2025-02-22 23:00] VITALS: BP 149/82
[2025-02-23] MEDS: HEPARIN 5000 UNITS SC ×4 (00:05→23:53)
[2025-02-23] MEDS: ZOSYN 50 IV ×5 (00:05→23:52)
[2025-02-23 03:00] VITALS: BP 151/80
[2025-02-23] MEDS: SYNTHROID 50 MCG PO (06:02)
[2025-02-23] MEDS: DILAUDID 0.25 MG IV (06:10)
[2025-02-23 07:00] VITALS: BP 156/93
[2025-02-23] MEDS: TORADOL 10 MG IV ×3 (08:14→22:42)
[2025-02-23 08:15] LABS: ALT (SGPT) 37 U/L (0-35); AST (SGOT) 26 U/L (14-36); Albumin 3.1 g/dl (3.5-5.0); Alkaline Phosphatase 67 U/L (38-126); Blood Urea Nitrogen 9 mg/dl (7-17); Calcium 7.7 mg/dl (8.4-10.2); Carbon Dioxide 21 mmol/L (22-30); Chloride 105 mmol/L (98-107); Estimated Creatinine Clearance 62 ml/min; Glucose 81 mg/dl (70-99); Hematocrit 31.6 % (37.0-47.0); Hemoglobin 11.1 g/dL (12.0-16.0); Magnesium 2.0 mg/dl (1.6-2.3); Mean Corp Hgb Conc. 35.1 g/dL (33.0-37.0); Mean Corpuscular Volume 92.7 fL (81.0-99.0); Platelet Count 224 10^3/uL (130-400); Potassium 3.5 mmol/L (3.5-5.1); Red Cell Dist. Width 12.4 % (11.5-14.5); Sodium 134 mmol/L (135-145); Total Protein 5.8 g/dl (6.3-8.2); eGFR > 60.00
[2025-02-23] MEDS: PROTONIX IV 40 MG IV (08:15)
[2025-02-23] MEDS: NSS (PRESERVATIVE FREE) 10 ML IV (08:15)
[2025-02-23] MEDS: SODIUM PHOSPHATE 255 MEQ IV (09:39)
[2025-02-23 11:00] VITALS: BP 144/86
--- NOTE | 2025-02-23 12:53 | W.PN.GS2 ---
Addendum entered and electronically signed by Porfirio Vazquez MD 02/23/25 14:55:
Patient seen and examined. at bedside.
She states that she is feeling better but she is apprehensive to resume significant p.o. intake.
Passing flatus. Bowel movement as well. No nausea.
Epigastric pain improving
AFVSS
NAD AAO x 3
ABD: Softly protuberant, tenderness to palpation epigastrium and at surgical sites. Surgical sites with glue dressings.
A/P: POD #2 status post lap layo for acute gallstone mediated pancreatitis
Pancreatitis clinically improving
Okay to advance diet full liquids and then low-fat as desired
Original Note:
Today's Communication / Plan
-
full liquids
Assessment / Plan
-
Assessment: 69-year-old female with acute gallstone mediated pancreatitis, possible cholecystitis. POD #2 laparoscopic cholecystectomy. Expected postoperative course.
AFVSS, WBC: 11.1 (15.6), Hgb 11.1 (11.2)
Imaging: None
Labs: BMP, CBC, mag, Phos
Diet: Will advance to full liquids
Analgesia: Per primary
DVT PPx
Activity: Ad Kareen, out of bed and ambulate as able.
Patient agreeable to plan of care above.
General surgery will continue to follow.
Subjective Data
-
Date of Service: February 23, 2025
Patient states she is feeling better. She just has some soreness in her upper abdomen. Denies nausea. She is tolerating fluids. She had a bowel movement.
Objective Data
-
Intake and Output
02/22/25 02/23/25 02/24/25
06:59 06:59 06:59
Intake Total 100 / 100 1000 / 1000 50 / 50
Balance 100 / 100 1000 / 1000 50 / 50
Intake:
Oral fluids 1000 / 1000
IV fluids (Total) 100 / 100
normsol 100 / 100
IV piggybacks 50 / 50
Other:
Number of approximated MODERATE 2 3
amounts of urine
Number of approximated LARGE 1
amounts of urine
Vital Signs
Temp Pulse Resp BP Pulse Ox
98.2 F 83 16 144/86 97
02/23/25 11:00 02/23/25 11:00 02/23/25 11:00 02/23/25 11:00 02/23/25 11:00
Lab Results
02/23/25 07:24
02/23/25 07:24
Calcium 7.7 mg/dl (8.4-10.2) L 02/23/25 07:24
Phosphorus 2.0 mg/dl (2.5-4.5) L 02/23/25 07:24
Magnesium 2.0 mg/dl (1.6-2.3) 02/23/25 07:24
Total Bilirubin 0.7 mg/dl (0.2-1.3) 02/23/25 07:24
Direct Bilirubin 0.8 mg/dl (0.0-0.4) H 02/19/25 06:00
AST 26 U/L (14-36) 02/23/25 07:24
ALT 37 U/L (0-35) H 02/23/25 07:24
Alkaline Phosphatase 67 U/L (38-126) 02/23/25 07:24
Total Protein 5.8 g/dl (6.3-8.2) L 02/23/25 07:24
Albumin 3.1 g/dl (3.5-5.0) L 02/23/25 07:24
Physical Exam
-
GENERAL/NEURO: Awake, Alert, no distress
ABDOMEN: Soft, appropriately tender upper abdomen, mildly distended, incisions clean dry and intact
Patient has a nicholson catheter: No
Patient has a central line: No
--- NOTE | 2025-02-23 14:08 | W.PN.HOSP.TC ---
Today's Communication/Plan
-
adv to FLD
Phosph repletion
Assessment / Plan
Assessment / Plan
Impression:
Patient is a 69y F with PMH significant for DLBCL, breast cancer, hypertension and hypothyroidism who presents to ED complaining of abdominal pain. Patient states that she was feeling well until this afternoon when she developed epigastric
abdominal discomfort. Pain was initially quite severe, but passed within an hour or so. She had no associated N/V, fevers / chills, etc at that time.
Around diner time, the pain recurred. This time accompanied by nausea with 2 episodes of non-bloody emesis. Emesis consisted primarily of undigested food from dinner and lunch.
Patient had persistent, severe pain and presented to the ED for further evaluation.
She denies any prior history of similar symptoms.
seen by both GI/ surgery, MRCP done shows no CBD dilation, for lap layo
Assessment/plan:
Acute Calculous Cholecystitis
- Admit for further evaluation and treatment.
- IVFs, pain control and supportive care.
- IV abx with Zosyn
- Surgery consulted, [id number]
- ADAT, full liquids
Acute pancreatitis
Possible secondary to passing gallbladder stone.
But ultrasound shows normal CBD diameter.
And also normal alk phos.
Treatment with IV fluid/nausea and pain control.
clear liquid
normal triglyceride level
Improved lipase level.
Appreciate GI input.
MRCP shows no CBD dilation but confirm acute pancreatitis/acute cholecystitis
Hyponatremia
Monitor
Hypophosphatemia
� Monitor and replete
Benign Hypertension
Resume losartan
Hypothyroidism
- Continue current T4 replacement.
Pseudogout
- Hold PO medication / colchicine acutely.
- Follow for any changes in joint pain, swelling, etc.
Breast Cancer
- s/p lumpectomy / initial treatment.
- On letrozole x years and developed adverse effects - now swicthed to tamoxifen.
DLBCL
- In remission s/p remote R-CHOP.
CODE STATUS: Full code
DVT prophylaxis: hsq
Diet: ADAT
Anticipated Discharge: 24 - 48 hours
Subjective/Interval History
-
Date of Service: February 23, 2025
No acute events
Objective Data
-
Labs:
Laboratory Results
02/23/25
07:24
WBC 11.1 H
Hgb 11.1 L
Hct 31.6 L
Plt Count 224
Sodium 134 L
Potassium 3.5
Chloride 105
Carbon Dioxide 21 L
BUN 9
Creatinine 0.7
Glucose 81
Calcium 7.7 L
Total Bilirubin 0.7
AST 26
ALT 37 H
Alkaline Phosphatase 67
Vital Signs:
Vital Signs
Temp Pulse Resp BP Pulse Ox
98.2 F 83 16 144/86 97
02/23/25 11:00 02/23/25 11:00 02/23/25 11:00 02/23/25 11:00 02/23/25 11:00
I&O
02/22/25 02/23/25 02/24/25
06:59 06:59 06:59
Intake Total 100 / 100 1000 / 1000 300 / 300
Balance 100 / 100 1000 / 1000 300 / 300
Review of Systems
-
All other systems: Reviewed and negative
Neuro: Reports Numbness (paresthesia left 5th finger)
Data Reviewed
-
Ultrasound: Report Reviewed by me
MRI: Report Reviewed by me
[2025-02-23 15:05] VITALS: BP 141/83
[2025-02-23 23:03] VITALS: BP 147/85
[2025-02-24] MEDS: ZOSYN 50 IV (05:27)
[2025-02-24] MEDS: SYNTHROID 50 MCG PO (05:27)
[2025-02-24 07:00] VITALS: BP 156/79
[2025-02-24] MEDS: HEPARIN 5000 UNITS SC ×2 (07:47→16:30)
[2025-02-24 08:17] LABS: Hematocrit 32.9 % (37.0-47.0); Hemoglobin 10.9 g/dL (12.0-16.0); Mean Corp Hgb Conc. 33.1 g/dL (33.0-37.0); Mean Corpuscular Volume 95.1 fL (81.0-99.0); Platelet Count 237 10^3/uL (130-400); Red Cell Dist. Width 12.3 % (11.5-14.5)
[2025-02-24] MEDS: PROTONIX IV 40 MG IV (08:53)
[2025-02-24] MEDS: NSS (PRESERVATIVE FREE) 10 ML IV (08:53)
[2025-02-24] MEDS: DILAUDID 0.25 MG IV ×3 (09:00→20:02)
[2025-02-24 09:15] LABS: ALT (SGPT) 31 U/L (0-35); AST (SGOT) 23 U/L (14-36); Albumin 3.1 g/dl (3.5-5.0); Alkaline Phosphatase 83 U/L (38-126); Blood Urea Nitrogen 7 mg/dl (7-17); Calcium 7.6 mg/dl (8.4-10.2); Carbon Dioxide 22 mmol/L (22-30); Chloride 102 mmol/L (98-107); Estimated Creatinine Clearance 62 ml/min; Glucose 80 mg/dl (70-99); Magnesium 1.9 mg/dl (1.6-2.3); Potassium 3.2 mmol/L (3.5-5.1); Sodium 132 mmol/L (135-145); Total Protein 5.9 g/dl (6.3-8.2); eGFR > 60.00
--- NOTE | 2025-02-24 11:16 | W.PN.GS2 ---
Addendum entered and electronically signed by Porfirio Vazquez MD 02/24/25 11:37:
Patient seen and examined with surgical PA. Agree with documented progress note.
Patient seen at bedside
She is feeling a bit better each day. Still remains apprehensive to advance diet out of fear of triggering symptoms.
Passing flatus and had bowel movement
AFVSS
NAD AAO x 3
ABD: Soft, mildly distended, less tenderness on palpation, surgical sites with glue dressings
A/P: 69-year-old female POD #3 status post lap layo; improving pancreatitis
Low-fat diet as tolerated
Stable for discharge when tolerates p.o. challenge from surgical standpoint
Outpatient follow-up in 2 weeks
Please call family if further assistance with postoperative care
Original Note:
Today's Communication / Plan
-
stop zosyn
low fat diet
Assessment / Plan
-
Assessment: 69-year-old female with acute gallstone mediated pancreatitis, possible cholecystitis. POD #3 laparoscopic cholecystectomy. Expected postoperative course.
AFVSS, WBC: 9.6 (11.1, 15.6), Hgb 10.2 (11.1, 11.2)
Imaging: None
Labs: BMP, CBC, mag, Phos
Diet: Will advance to low fat
Analgesia: Per primary
DVT PPx
Activity: Ad Kareen, out of bed and ambulate as able.
Stop Zosyn
Anticipate discharge tomorrow if tolerating low fat
Patient agreeable to plan of care above.
General surgery will continue to follow.
Subjective Data
-
Date of Service: February 24, 2025
Patient states she still has some pain but improving. She has bowel function and flatus. Denies nausea or vomiting. She is nervous to eat.
Objective Data
-
Intake and Output
02/23/25 02/24/25 02/25/25
06:59 06:59 06:59
Intake Total 1000 / 1000 1560 / 1560 600 / 600
Balance 1000 / 1000 1560 / 1560 600 / 600
Intake:
Oral fluids 1000 / 1000 1260 / 1260 600 / 600
IV piggybacks 300 / 300
Other:
Number of approximated MODERATE 3 3
amounts of urine
Vital Signs
Temp Pulse Resp BP Pulse Ox
98.4 F 77 14 156/79 97
02/24/25 07:00 02/24/25 07:00 02/24/25 07:00 02/24/25 07:00 02/24/25 07:00
Lab Results
02/24/25 06:38
02/24/25 06:38
Calcium 7.6 mg/dl (8.4-10.2) L 02/24/25 06:38
Phosphorus 3.2 mg/dl (2.5-4.5) 02/24/25 06:38
Magnesium 1.9 mg/dl (1.6-2.3) 02/24/25 06:38
Total Bilirubin 0.8 mg/dl (0.2-1.3) 02/24/25 06:38
Direct Bilirubin 0.8 mg/dl (0.0-0.4) H 02/19/25 06:00
AST 23 U/L (14-36) 02/24/25 06:38
ALT 31 U/L (0-35) 02/24/25 06:38
Alkaline Phosphatase 83 U/L (38-126) 02/24/25 06:38
Total Protein 5.9 g/dl (6.3-8.2) L 02/24/25 06:38
Albumin 3.1 g/dl (3.5-5.0) L 02/24/25 06:38
Physical Exam
-
GENERAL/NEURO: Awake, Alert, no distress
ABDOMEN: Soft, appropriately tender upper abdomen, mildly distended, incisions clean dry and intact
Patient has a nicholson catheter: No
Patient has a central line: No
--- NOTE | 2025-02-24 13:48 | W.PN.HOSP.TC ---
Today's Communication/Plan
-
Adv diet to LFD - patient hesitant; If tolerating diet can dc - tentative within 24 hours
K repletion
monitor Na
Assessment / Plan
Assessment / Plan
Impression:
Patient is a 69y F with PMH significant for DLBCL, breast cancer, hypertension and hypothyroidism who presents to ED complaining of abdominal pain. Patient states that she was feeling well until this afternoon when she developed epigastric
abdominal discomfort. Pain was initially quite severe, but passed within an hour or so. She had no associated N/V, fevers / chills, etc at that time.
Around diner time, the pain recurred. This time accompanied by nausea with 2 episodes of non-bloody emesis. Emesis consisted primarily of undigested food from dinner and lunch.
Patient had persistent, severe pain and presented to the ED for further evaluation.
She denies any prior history of similar symptoms.
seen by both GI/ surgery, MRCP done shows no CBD dilation, for lap layo
Assessment/plan:
Acute Calculous Cholecystitis
- Admit for further evaluation and treatment.
- IVFs, pain control and supportive care.
-received 5 days zosyn
- Surgery consulted, [id number]
- ADAT, full liquids�advance to low-fat diet
� Follow-up surgery in 2 weeks
Acute pancreatitis
Possible secondary to passing gallbladder stone.
But ultrasound shows normal CBD diameter.
And also normal alk phos.
Treatment with IV fluid/nausea and pain control.
clear liquid
normal triglyceride level
Improved lipase level.
Appreciate GI input.
MRCP shows no CBD dilation but confirm acute pancreatitis/acute cholecystitis
Hyponatremia
Monitor
#Hypokalemia
� Monitor and replete
Hypophosphatemia
� Monitor and replete
Benign Hypertension
Resume losartan
Hypothyroidism
- Continue current T4 replacement.
Pseudogout
- Hold PO medication / colchicine acutely.
- Follow for any changes in joint pain, swelling, etc.
Breast Cancer
- s/p lumpectomy / initial treatment.
- On letrozole x years and developed adverse effects - now swicthed to tamoxifen.
DLBCL
- In remission s/p remote R-CHOP.
CODE STATUS: Full code
DVT prophylaxis: hsq
Diet: ADAT
Anticipated Discharge: Within 24 hours
Subjective/Interval History
-
Date of Service: February 24, 2025
Hesitant to eat, low appetite although tolerated for the diet
Objective Data
-
Labs:
Laboratory Results
02/24/25
06:38
WBC 9.9
Hgb 10.9 L
Hct 32.9 L
Plt Count 237
Sodium 132 L
Potassium 3.2 L
Chloride 102
Carbon Dioxide 22
BUN 7
Creatinine 0.7
Glucose 80
Calcium 7.6 L
Total Bilirubin 0.8
AST 23
ALT 31
Alkaline Phosphatase 83
Vital Signs:
Vital Signs
Temp Pulse Resp BP Pulse Ox
98.4 F 77 14 156/79 97
02/24/25 07:00 02/24/25 07:00 02/24/25 07:00 02/24/25 07:00 02/24/25 07:00
I&O
02/23/25 02/24/25 02/25/25
06:59 06:59 06:59
Intake Total 1000 / 1000 1560 / 1560 600 / 600
Balance 1000 / 1000 1560 / 1560 600 / 600
Review of Systems
-
All other systems: Reviewed and negative
Neuro: Reports Numbness (paresthesia left 5th finger)
[2025-02-24] MEDS: KCL ELIXIR 40 MEQ PO (14:10)
[2025-02-24 15:00] VITALS: BP 142/82
[2025-02-24 23:00] VITALS: BP 150/97
[2025-02-25] MEDS: HEPARIN 5000 UNITS SC ×3 (00:50→16:07)
[2025-02-25] MEDS: DILAUDID 0.25 MG IV (04:23)
[2025-02-25] MEDS: SYNTHROID 50 MCG PO (05:37)
[2025-02-25 06:44] LABS: Hematocrit 34.0 % (37.0-47.0); Hemoglobin 11.4 g/dL (12.0-16.0); Mean Corp Hgb Conc. 33.5 g/dL (33.0-37.0); Mean Corpuscular Volume 96.0 fL (81.0-99.0); Platelet Count 251 10^3/uL (130-400); Red Cell Dist. Width 12.3 % (11.5-14.5)
[2025-02-25 07:25] LABS: ALT (SGPT) 26 U/L (0-35); AST (SGOT) 22 U/L (14-36); Albumin 3.2 g/dl (3.5-5.0); Alkaline Phosphatase 86 U/L (38-126); Blood Urea Nitrogen 5 mg/dl (7-17); Calcium 8.0 mg/dl (8.4-10.2); Carbon Dioxide 26 mmol/L (22-30); Chloride 101 mmol/L (98-107); Estimated Creatinine Clearance 62 ml/min; Glucose 90 mg/dl (70-99); Magnesium 2.0 mg/dl (1.6-2.3); Potassium 4.2 mmol/L (3.5-5.1); Sodium 134 mmol/L (135-145); Total Protein 5.9 g/dl (6.3-8.2); eGFR > 60.00
[2025-02-25 07:30] VITALS: BP 145/86
[2025-02-25 07:36] VITALS: BP 145/86
[2025-02-25] MEDS: NSS (PRESERVATIVE FREE) 10 ML IV (09:19)
[2025-02-25] MEDS: PROTONIX IV 40 MG IV (09:20)
--- NOTE | 2025-02-25 10:37 | W.PN.HOSP.TC ---
Addendum entered and electronically signed by Kavitha Burt MD 02/25/25 14:40:
Attending�addendum:
I saw and evaluated the patient. I reviewed the resident�s note and agree with findings and plan as documented in the resident�s note.��patient seen and examined at bedside, denies any chest pain or shortness of breath, no abdominal pain, no nausea,
no vomiting, no diarrhea or constipation.
Tolerating low-fat diet.
Physical�exam:
GENERAL : Patient is awake, alert, oriented x3
HEENT: Nonicteric sclerae, PERRLA, EOMI. Oropharynx clear. Moist mucous membranes. Conjunctivae appear well perfused.
CHEST: Chest wall is nontender.
HEART: Regular rate and rhythm without murmurs.
LUNGS: Clear to auscultation bilaterally.
ABDOMEN: Mild epigastric tenderness.
RECTAL: Deferred.
MUSCLES/EXTREMITIES: No abnormal range of motion, no swelling.SKIN: No rash, no excessive bruising, petechiae, or purpura.
NEUROLOGIC: Cranial nerves II-XII intact without motor/sensory deficit.
�
Assessment/plan:
Acute cystitis/acute pancreatitis.
Improving.
Status post lap layo.
Okay to discharge
Hyponatremia/hypokalemia/hypomagnesemia.
Replace and continue to monitor
History of hypertension/hypothyroidism/pseudogout/breast cancer.
Continue current meds
CODE STATUS: Full code
DVT prophylaxis: Heparin
Diet: Low-fat
Family communication: Discussed with at bedside
Disposition: Discharge home today
�
Total time spent on today�s encounter was 51 minutes which included time spent in counseling the patient/family regarding diagnosis and treatment plan as listed above, goals of care, and symptom management. Case was discussed with nursing staff,
specialists, and care coordinators/case management. All labs and imaging personally reviewed by me. Remainder the time spent in detailed review of previous records, lab data, imaging, and other medical provider documentation.
Original Note:
Today's Communication/Plan
-
DC today
Assessment / Plan
Assessment / Plan
Impression:
A 69 year old female with PMH significant for DLBCL, breast cancer, hypertension and hypothyroidism who presents to ED complaining of abdominal pain. Patient developed severe epigastric abdominal discomfort which resolved in an hour or so. She
had a recurrence of the pain with associated nausea and multiple episodes of non-bloody emesis which prompted the ED visit. Imaging showed acute cholecystitis and pancreatitis.
Assessment/plan:
# Acute calculous cholecystitis�
Surgery consulted
IVF, pain control
S/p cholecystectomy 02/21/25
S/p Zosyn 5 day course
Advanced to low fat diet 02/21/25 from full liquids. Tolerating well, can dc today.�
Outpatient follow up with surgery in 2 weeks
# Acute pancreatitis
Likely due to passing of gallbladder stone vs tamoxifen use
Normal alk phos
IVF, pain control, antiemetics
Triglycerides normal
Lipase >4000 on 02/18/25, improved to 54 on 02/22/25
# Hyponatremia
# Hypokalemia
# Hypomagnesemia�
Monitor and replete as needed
BMP improving: Na 134, increased from 132. K 4.2, Mg 2.0 on 02/25/25
# Essential hypertension
Continue Losartan
# Hypothyroidism
Continue T4 supplementation
# Pseudogout
Hold colchicine�
Monitor symptoms
# History of breast cancer
# Diffuse Large B cell Lymphoma
S/p lumpectomy, initial treatment
On Letrozole therapy but developed side effects, switched to tamoxifen
CODE STATUS: Full code
DVT prophylaxis: Heparin subcutaneous
Anticipated Discharge: Today
Subjective/Interval History
-
Date of Service: February 25, 2025
Evaluated at bedside this morning. She states she feels okay, and has some abdominal pain. Patient understands this is normal after surgery. Patient ate half a bagel and a spoonful of rice + tea. No new complaints.
Objective Data
-
Labs:
Laboratory Results
02/25/25
06:02
WBC 11.9 H
Hgb 11.4 L
Hct 34.0 L
Plt Count 251
Sodium 134 L
Potassium 4.2 D
Chloride 101
Carbon Dioxide 26
BUN 5 L
Creatinine 0.7
Glucose 90
Calcium 8.0 L
Total Bilirubin 0.5
AST 22
ALT 26
Alkaline Phosphatase 86
Vital Signs:
Vital Signs
Temp Pulse Resp BP Pulse Ox
97.8 F 82 16 145/86 97
02/25/25 07:30 02/25/25 07:30 02/25/25 07:30 02/25/25 07:30 02/25/25 07:30
I&O
02/24/25 02/25/25 02/26/25
06:59 06:59 06:59
Intake Total 1560 / 1560 600 / 600
Balance 1560 / 1560 600 / 600
Review of Systems
-
History Source: Patient
Constitutional: Reports No Symptoms
EENT: Reports No Symptoms Reported
Respiratory: Reports No Symptoms
Cardiac: Reports No Symptoms
Abdomen/GI: Reports Abdominal Pain
Breast: Reports No Symptoms
Genitourinary: Reports No Symptoms
Musculoskeletal: Reports No Symptoms
Skin: Reports No Symptoms
Neuro: Reports No Symptoms
Endocrine: Reports No Symptoms
Hematologic / Lymphatic: Reports No Symptoms
Physical Exam
-
General: Well Developed, Well Nourished, No Apparent Distress, Comfortable and Conversant
HEENT: Normocephalic, Atraumatic, Moist Mucous Membranes and Anicteric
Respiratory: Clear to Auscultation
Cardiac: Regular Rhythm and S1/S2
GI: Soft, Nontender, Nondistended and Normal Bowel Sounds
Musculoskeletal: Edema, Right Lower Extrem (1+) and Edema, Left Lower Extrem (1+)
Skin: Warm
Neuro: Awake, AO x 3 and Nonfocal/Grossly Intact
Psych: Calm and Intact Judgement/Insight
Data Reviewed
-
Labs: Labs Reviewed by me, Discussed with Physician and Discussed with Patient
Old Records: Reviewed
[2025-02-25] MEDS: ULTRAM 50 MG PO (11:23)
[2025-02-25] MEDS: COLACE 100 MG PO (11:23)
[2025-02-25] MEDS: MIRALAX 17 GRAMS PO (11:23)
[2025-02-25 13:24] VITALS: BP 153/90; PULSE 89; O2SAT 97
[2025-02-25 15:00] VITALS: BP 155/89
--- NOTE | 2025-02-25 15:13 | W.DCSUMMARY ---
Addendum entered and electronically signed by Kavitha Burt MD 02/25/25 15:17:
Attending�addendum:
I saw and evaluated the patient. I reviewed the resident�s note and agree with findings and plan as documented in the resident�s note.��patient seen and examined at bedside, denies any chest pain or shortness of breath, no abdominal pain, no nausea,
no vomiting, no diarrhea or constipation.
Tolerating low-fat diet.
Physical�exam:
GENERAL : Patient is awake, alert, oriented x3
HEENT: Nonicteric sclerae, PERRLA, EOMI. Oropharynx clear. Moist mucous membranes. Conjunctivae appear well perfused.
CHEST: Chest wall is nontender.
HEART: Regular rate and rhythm without murmurs.
LUNGS: Clear to auscultation bilaterally.
ABDOMEN: Mild epigastric tenderness.
RECTAL: Deferred.
MUSCLES/EXTREMITIES: No abnormal range of motion, no swelling.SKIN: No rash, no excessive bruising, petechiae, or purpura.
NEUROLOGIC: Cranial nerves II-XII intact without motor/sensory deficit.
�
Assessment/plan:
Acute cystitis/acute pancreatitis.
Improving.
Status post lap layo.
Okay to discharge
Hyponatremia/hypokalemia/hypomagnesemia.
Replace and continue to monitor
History of hypertension/hypothyroidism/pseudogout/breast cancer.
Continue current meds
CODE STATUS: Full code
DVT prophylaxis: Heparin
Diet: Low-fat
Family communication: Discussed with at bedside
Disposition: Discharge home today
�
Total time spent on today�s encounter was 40 minutes which included time spent in counseling the patient/family regarding diagnosis and treatment plan as listed above, goals of care, and symptom management. Case was discussed with nursing staff,
specialists, and care coordinators/case management. All labs and imaging personally reviewed by me. Remainder the time spent in detailed review of previous records, lab data, imaging, and other medical provider documentation
Original Note:
Documented by User: Adrianna Guzman MD, Resident 02/25/25 15:16
Discharge Summary
Discharge Data
Date of Admission: 02/19/25
Date of Discharge: 02/25/25
-
Pending Results: No
Hospital Course
Discharging Physician : Dr. Kavitha Burt and Dr. Adrianna Guzman
Disposition : Home
Primary care physician : Horacio Steele NP
Principal Discharge diagnosis : Acute calculous cholecystitis, Acute pancreatitis, Hyponatremia, Hypokalemia, Hypomagnesemia
Chronic Discharge diagnosis : Essential hypertension, Hypothyroidism, pseudogout, history of breast cancer, history of diffuse large B cell lymphoma
Hospital Course : A 69 year old female with a PMH of diffuse large B-cell lymphoma, breast cancer, hypertension and hypothyroidism who presented to the ED with severe epigastric abdominal pain associated with nausea and multiple episodes of
non-bloody emesis. Imaging (US abdomen and MRI abdomen) revealed findings consistent with acute calculous cholecystitis and acute pancreatitis, with evidence of gallstones, gallbladder wall thickening, and pericholecystic edema. She was admitted for
IV fluids, pain control and antibiotics (Zosyn). General surgery was consulted. The patient subsequently underwent a cholecystectomy on 02/21/25 without complications. Postoperatively, she was advanced from a full liquid to a low-fat diet, which she
tolerated well. Her pain is now well controlled, and she will be discharged with Tramadol for pain management and instructions to follow up with surgery in two weeks.
Patient had pancreatitis likely secondary to passage of a gallstone vs tamoxifen use. Triglycerides were normal, and lipase levels improved from >4000 on 02/18/25 to 54 on 02/22/25. Electrolyte abnormalities (hyponatremia, hypokalemia, hypomagnesemia)
were monitored and repleted as needed with current labs showing Na 134, K 4.2, and Mg 2.0 on 02/25/25. Her chronic conditions were managed appropriately during hospitalization. At discharge, the patient is hemodynamically stable, tolerating diet and
ready for outpatient management. She will continue her home medications as prescribed, including Losartan and levothyroxine, and follow up with surgery in two weeks. Patient has also been instructed to follow up with PCP within a week.
Important imaging findings :
US abd:
Cholelithiasis. Gall bladder wall thickening with rim of pericholecystic edema. In the correct clinical setting, these findings are suggestive of acute cholecystitis
MRI abdomen:
Small layer of dependent gallstones in the posterior gallbladder. Gallbladder wall thickening and/or pericholecystic edema, findings suggestive of acute cholecystitis. Increased T2-weighted signal within the body and head of the pancreas, findings
suggesting pancreatitis. Significant edema within the abdomen, greater in the right upper quadrant compared to the left. This edema is likely due to acute cholecystitis and pancreatitis. There is no evidence for macroscopic pancreatic necrosis.
There is no evidence of a focal collection to suggest abscess or developing pseudocyst. No evidence for biliary ductal dilation. No evidence for bile duct calculus. Hepatomegaly. Periportal edema. Small bilateral pleural effusions, right greater
than left.
Discharge Plan
-
Patient Disposition: Home (Routine Discharge)
Discharge Diagnosis/Procedures: Gallstone mediated acute pancreatitis. Laparoscopic cholecystectomy with cholangiogram
Condition: Good
Diet: As tolerated and Low Fat
Additional Diets: Smaller meals initially as abdominal bloating and distention are common after pancreatitis and gallbladder surgery
Activity: No strenuous activity
Driving Restrictions: No driving for 2 to 3 days or if using narcotics
Bathing Restrictions: OK to Shower
Wound Care: Glue at surgical sites typically peels off in 2 to 3 weeks
Activity Restrictions/Additional Instructions:
[facility] General Surgery
Porfirio Vazquez MD FACS
[facility]
[address], [address]
[place] [address]
[phone]
Post-Operative Instructions for Gallbladder Surgery
The incision sites are sealed with a surgical glue dressing.� It is safe to shower at any time after surgery when the glue is dry.� Let shower water run over the incisions and then pat dry.
Glue dressing typically peels off in 2-3 weeks.
Abdominal/incisional pain and discomfort, shoulder/scapular pain, bloating, and mild nausea, as well as bruising/stiffness and swelling at the incision sites are common after surgery.� If felt to be excessive, notify us.
Please start postoperative pain management using over the counter medications such as Tylenol and Ibuprofen, per instructions on the bottle, as long as there are no medical reasons why you cannot take these medications.
Ice the incisions sites for 20 minutes every hour or so to help with postoperative incisional pain and reduce postoperative surgical site swelling.� Take care NOT to get an ice burn on the skin surface.
A warm heating pad is often helpful to alleviate shoulder/scapular back pains after laparoscopic procedures.� This pain typically dissipates 24-72hrs post op.
Transition to a low fat diet as tolerated after surgery if not experiencing postoperative nausea or significant bloating/distention.� Some fatty food intolerance may occur shortly after surgery (cramps,bloating, nausea,diarrhea with fat intake).
Constipation is common following surgery and postoperative narcotic use.� May use a stool softener such as Colace (100 mg 2x day) to prevent constipation
If no BM 24hrs after surgery, recommend starting daily Miralax
If no BM in 24-48hrs after starting Miralax --> recommend then using a dose of magnesium citrate or milk of magnesia with a Senokot tablet to help alleviate post operative constipation as long as there is no nausea/vomiting and passing gas.
Resume all preoperative medications as directed on the discharge medication reconciliation paper.
Do not drive or drink alcohol for 24 hrs after having anesthesia -OR- while taking narcotic pain medications.
Resume regular daily light activities, such as walking, standing and going up/down stairs as tolerated within 24hrs of surgery.� Please refrain from lifting over 15-20 lbs or strenuous exercise until postoperative follow up visit &/or approximately
3-4 weeks.�
Call the office with a fever above 101� F, nausea with vomiting, severe abdominal pain, yellowing of skin or eyes, spreading redness and drainage from incision sites or with any concerns/questions.
If not arranged prior to surgery, please call the office to schedule or confirm your postoperative surgical follow-up office visit with Dr. Vazquez.
Referrals:
Yong Lomeli MD [Active, Gastroenterology]
Referral Note: If needed
Porfirio Vazquez MD [Active, Surgical] - in two weeks
Horacio Steele NP [Family Provider, General] - in less than 1 week
Prescriptions:
New
tramadol 50 mg Tablet
50 mg PO Q6HPRN PRN (Reason: Moderate Pain) Qty: 15 0RF
Continued
losartan 50 mg Tablet
50 mg PO DAILY
levothyroxine 50 mcg Tablet
50 mcg PO DAILY
ezetimibe 10 mg Tablet
10 mg PO DAILY
calcium carbonate-vitamin D3 [Calcium 500 + D] 500 mg-10 mcg (400 unit) Tablet
1 tab PO DAILY
magnesium oxide 400 mg magnesium Tablet
400 mg PO HS
pyridoxine (vitamin B6) 50 mg Tablet
50 mg PO DAILY Qty: 30 0RF
tamoxifen 20 mg Tablet
20 mg PO DAILY
icosapent ethyl 1 gram Capsule
1 g PO DAILY
colchicine 0.6 mg Capsule
0.6 mg PO DAILY
Discharge Orders:
Discharge Patient (As Directed); Ordered 02/25/25
Ordered By: Kavitha Burt
Discharge Date and Time
Print Language: CZECH

Documented by User: Kavitha Burt MD 02/25/25 15:17
Discharge Summary
Discharge Data
Date of Admission: 02/19/25
Date of Discharge: 02/25/25
Discharge Plan
-
Patient Disposition: Home (Routine Discharge)
Discharge Diagnosis/Procedures: Gallstone mediated acute pancreatitis. Laparoscopic cholecystectomy with cholangiogram
Condition: Good
Diet: As tolerated and Low Fat
Additional Diets: Smaller meals initially as abdominal bloating and distention are common after pancreatitis and gallbladder surgery
Activity: No strenuous activity
Driving Restrictions: No driving for 2 to 3 days or if using narcotics
Bathing Restrictions: OK to Shower
Wound Care: Glue at surgical sites typically peels off in 2 to 3 weeks
Activity Restrictions/Additional Instructions:
[facility] General Surgery
Porfirio Vazquez MD FACS
[facility]
[address] [place] [address], [address]
[place] [address]
[phone]
Post-Operative Instructions for Gallbladder Surgery
The incision sites are sealed with a surgical glue dressing.� It is safe to shower at any time after surgery when the glue is dry.� Let shower water run over the incisions and then pat dry.
Glue dressing typically peels off in 2-3 weeks.
Abdominal/incisional pain and discomfort, shoulder/scapular pain, bloating, and mild nausea, as well as bruising/stiffness and swelling at the incision sites are common after surgery.� If felt to be excessive, notify us.
Please start postoperative pain management using over the counter medications such as Tylenol and Ibuprofen, per instructions on the bottle, as long as there are no medical reasons why you cannot take these medications.
Ice the incisions sites for 20 minutes every hour or so to help with postoperative incisional pain and reduce postoperative surgical site swelling.� Take care NOT to get an ice burn on the skin surface.
A warm heating pad is often helpful to alleviate shoulder/scapular back pains after laparoscopic procedures.� This pain typically dissipates 24-72hrs post op.
Transition to a low fat diet as tolerated after surgery if not experiencing postoperative nausea or significant bloating/distention.� Some fatty food intolerance may occur shortly after surgery (cramps,bloating, nausea,diarrhea with fat intake).
Constipation is common following surgery and postoperative narcotic use.� May use a stool softener such as Colace (100 mg 2x day) to prevent constipation
If no BM 24hrs after surgery, recommend starting daily Miralax
If no BM in 24-48hrs after starting Miralax --> recommend then using a dose of magnesium citrate or milk of magnesia with a Senokot tablet to help alleviate post operative constipation as long as there is no nausea/vomiting and passing gas.
Resume all preoperative medications as directed on the discharge medication reconciliation paper.
Do not drive or drink alcohol for 24 hrs after having anesthesia -OR- while taking narcotic pain medications.
Resume regular daily light activities, such as walking, standing and going up/down stairs as tolerated within 24hrs of surgery.� Please refrain from lifting over 15-20 lbs or strenuous exercise until postoperative follow up visit &/or approximately
3-4 weeks.�
Call the office with a fever above 101� F, nausea with vomiting, severe abdominal pain, yellowing of skin or eyes, spreading redness and drainage from incision sites or with any concerns/questions.
If not arranged prior to surgery, please call the office to schedule or confirm your postoperative surgical follow-up office visit with Dr. Vazquez.
Referrals:
Yong Lomeli MD [Active, Gastroenterology]
Referral Note: If needed
Porfirio Vazquez MD [Active, Surgical] - in two weeks
Horacio Steele NP [Family Provider, General] - in less than 1 week
Prescriptions:
New
tramadol 50 mg Tablet
50 mg PO Q6HPRN PRN (Reason: Moderate Pain) Qty: 15 0RF
Continued
losartan 50 mg Tablet
50 mg PO DAILY
levothyroxine 50 mcg Tablet
50 mcg PO DAILY
ezetimibe 10 mg Tablet
10 mg PO DAILY
calcium carbonate-vitamin D3 [Calcium 500 + D] 500 mg-10 mcg (400 unit) Tablet
1 tab PO DAILY
magnesium oxide 400 mg magnesium Tablet
400 mg PO HS
pyridoxine (vitamin B6) 50 mg Tablet
50 mg PO DAILY Qty: 30 0RF
tamoxifen 20 mg Tablet
20 mg PO DAILY
icosapent ethyl 1 gram Capsule
1 g PO DAILY
colchicine 0.6 mg Capsule
0.6 mg PO DAILY
Discharge Orders:
Discharge Patient (As Directed); Ordered 02/25/25
Ordered By: Kavitha Burt
Discharge Date and Time
Print Language: CZECH
--- NOTE | 2025-02-25 15:27 | CM ---
Chart reviewed. Patient will d/c home today
Met w/ patient and spouse bedside, agreeable to d/c today
IMM verbally reviewed, copy provided, copy on chart
No CM needs identified at this time
Plan: Home, no needs
== END 2025-02-25 17:09 | disposition home or self-care (01) | DRG 417 ==
LOC: 4 WEST ACU 02:08
PROVIDERS: Physician Assistant; Surgery; ADMITTING PHYSICIAN Hospitalist; ATTENDING PHYSICIAN General Practice; CONSULT PHYSICIAN Internal Medicine; EMERGENCY PHYSICIAN Emergency Medicine; FAMILY PHYSICIAN Nurse Practitioner Gerontology; OTHER PHYSICIAN Surgery
PROC: BF532Z0 Other Imaging of Gallbladder and Bile Ducts using Fluorescing Agent, Intraoperative (ICD-10-PCS; 2025-02-21)
PROC: 0FT44ZZ Resection of Gallbladder, Percutaneous Endoscopic Approach (ICD-10-PCS; 2025-02-21)
DX: K80.00 Calculus of gallbladder with acute cholecystitis without obstruction (principal); K85.10 Biliary acute pancreatitis without necrosis or infection; N30.00 Acute cystitis without hematuria; E87.1 Hypo-osmolality and hyponatremia; C83.3A Diffuse large B-cell lymphoma, in remission; E83.42 Hypomagnesemia; E87.6 Hypokalemia; E03.9 Hypothyroidism, unspecified; I10 Essential (primary) hypertension; Z85.3 Personal history of malignant neoplasm of breast; Z79.890 Hormone replacement therapy; E78.00 Pure hypercholesterolemia, unspecified; Z85.828 Personal history of other malignant neoplasm of skin; Z90.11 Acquired absence of right breast and nipple; Z92.3 Personal history of irradiation; Z79.899 Other long term (current) drug therapy
CPT/HCPCS: 74183; 74300; 76000; 76705; 80048; 80053; 80061; 80076; 81003; 81015; 82787; 83690; 83735; 83930; 83935; 84100; 85025; 85027; 87086; 88304; 93005; 97162; A4300